=== PATIENT | female | born 1950 | race Caucasian/White ===

== ENCOUNTER 2016-10-28 08:16 | Day surgery (SDC) | payer MEDICARE, BC ==
[~2016-10-28 08:16] MED LIST: KETOROLAC TROMETHAMINE 0.45% 4 DROP/0.4 ML DROPERETTE OS PRN; MIDAZOLAM 2 MG/2 ML INJ ONE
[2016-10-28] MEDS: BESIFLOXACIN HCL 0.6% OPH SUSP 5 ML BOTTLE OS PRN ×4 (08:39→09:29)
[2016-10-28] MEDS: CYCLOPENTOLATE 0.2%/PHENYLEPHRINE 1% OPH SOLN 2 ML OS PRN ×3 (08:39→08:48)
[2016-10-28] MEDS: TROPICAMIDE 1% OPH SOLN 3 ML OS PRN ×3 (08:39→08:48)
[2016-10-28] MEDS: TETRACAINE HCL 0.5% OPH SOLN 2 ML OS PRN ×3 (08:39→08:59)
[2016-10-28] MEDS: CHONDR SU A NA/HYALUR INTRAOC KIT (SURGICARE) ONE ×2 (09:13)
[2016-10-28] MEDS: LIDOCAINE 1% INJ-PF (10 MG/ML) 30 ML SDV ONE ×2 (09:13)
[2016-10-28] MEDS: EPINEPHRINE INJ/PF 1 MG/1 ML AMPULE ONE ×2 (09:13)
--- NOTE | 2016-10-28 20:32 | [facility] OPERATIVE REPORT E ---
[facility] Operative Report NAME: SHARON MCPHERSON AGE: 66Y DATE OF SURGERY: 10/28/2016 ROOM: PREOPERATIVE DIAGNOSIS: CATARACT, LEFT EYE. POSTOPERATIVE DIAGNOSIS: CATARACT, LEFT EYE. OPERATION: Cataract extraction with intraocular lens implant of the left eye. SURGEON: BARRETT BOLANOS M.D. ANESTHESIA: Topical. PROCEDURE: After obtaining appropriate consent, the patient's left eye was prepped and draped in sterile fashion as well as the surgeon in a sterile manner and cataract surgery was started. First a paracentesis blade was used to make a small side-port incision. Viscoelastic was used to inflate the anterior chamber. Next a 2.4 mm incision was made with the paracentesis blade. A continuous capsulorrhexis incision was made using a cystotome and Utrata forceps. Following this hydrodissection was carried out to make the lens fully loose and mobile and it was rotated 90 degrees. Following this, a mhfkvw-gtp-uyzisuk technique was used to phacoemulsify the lens with a CDE of 7.96. The remaining cortex was removed with irrigation/aspiration. Provisc was instilled into the capsular bag to inflate the bag. A SN60WF, 19.5 diopter lens was placed. The remaining viscoelastic material was removed with irrigation/aspiration. Following this, a 10-0 nylon suture was used to close the incision and it was found to be watertight. Vigamox was instilled in the eye and a protective shield was placed over the eye. The patient returned to the postoperative recovery in stable condition. DICTATING PHYSICIAN: BARRETT BOLANOS M.D. [id number] PHY#: [id number] ID: [id number] JOB#: [id number] ACCT: [id number] cc:BARRETT BOLANOS M.D. >
--- NOTE | 2016-10-28 20:33 | DISCHARGE SUMMARY E ---
Discharge Summary NAME: SHARON MCPHERSON : 1950 AGE: 66Y ADMITTED: 10/28/2016 DISCHARGED: 10/28/2016 This is a 66-year-old female who underwent cataract extraction of the left eye. DIAGNOSIS: Cataract, left eye. She underwent surgery because she was having difficulty with glare from headlights making it difficult to drive at night. DISCHARGE INSTRUCTIONS: She is to be on a regular diet. No bending at her waist, no heavy lifting. She is to use Besivance, Ilevro, and Durezol at 3:00 p.m. and 8:00 p.m., and sleep with a rigid shield. I will see her for her 1-day postoperative tomorrow. DICTATING PHYSICIAN: BARRETT BOLANOS M.D. [id number] PHY#: [id number] ID: [id number] JOB#: [id number] ACCT: [id number] cc:BARRETT BOLANOS M.D. >
== END 2016-10-28 10:16 | disposition home or self-care (01) ==
LOC: SC 08:16
PROVIDERS: ATTEND Internal Medicine
PROC: 08RK3JZ Replacement of Left Lens with Synthetic Substitute, Percutaneous Approach (ICD-10-PCS; principal; 2016-10-28 09:00)
DX: H25.13 Age-related nuclear cataract, bilateral (principal); I10 Essential (primary) hypertension; J45.909 Unspecified asthma, uncomplicated; M19.90 Unspecified osteoarthritis, unspecified site; D64.9 Anemia, unspecified; I51.9 Heart disease, unspecified; F32.9 Major depressive disorder, single episode, unspecified; E11.40 Type 2 diabetes mellitus with diabetic neuropathy, unspecified; E78.00 Pure hypercholesterolemia, unspecified; Z79.899 Other long term (current) drug therapy; Z79.82 Long term (current) use of aspirin; Z79.4 Long term (current) use of insulin; Z75.1 Person awaiting admission to adequate facility elsewhere
CPT/HCPCS: 66984; 82962; V2632; J2250; J3490 ×2; A9270; J0171; 142

== ENCOUNTER 2016-11-18 09:16 | Day surgery (SDC) | payer MEDICARE, BC ==
[~2016-11-18 09:16] MED LIST changes: +KETOROLAC TROMETHAMINE 0.45% 4 DROP/0.4 ML DROPERETTE OD PRN; -KETOROLAC TROMETHAMINE 0.45% 4 DROP/0.4 ML DROPERETTE OS PRN; -MIDAZOLAM 2 MG/2 ML INJ ONE
[2016-11-18] MEDS ORDERED: EPINEPHRINE INJ/PF 1 MG/1 ML AMPULE ONE (09:26)
[2016-11-18] MEDS ORDERED: CHONDR SU A NA/HYALUR INTRAOC KIT (SURGICARE) ONE (09:27)
[2016-11-18] MEDS ORDERED: LIDOCAINE 1% INJ-PF (10 MG/ML) 30 ML SDV ONE (09:27)
[2016-11-18] MEDS: TETRACAINE HCL 0.5% OPH SOLN 2 ML OD PRN ×3 (09:45→10:29)
[2016-11-18] MEDS: CYCLOPENTOLATE 0.2%/PHENYLEPHRINE 1% OPH SOLN 2 ML OD PRN ×3 (09:45→10:05)
[2016-11-18] MEDS: TROPICAMIDE 1% OPH SOLN 3 ML OD PRN ×3 (09:46→10:05)
[2016-11-18] MEDS: BESIFLOXACIN HCL 0.6% OPH SUSP 5 ML BOTTLE OD PRN ×4 (09:46→10:49)
[2016-11-18] MEDS ORDERED: MIDAZOLAM 2 MG/2 ML INJ ONE (09:53)
[2016-11-18] MEDS ORDERED: FENTANYL CITRATE INJ/PF 100 MCG/2 ML AMPUL ONE (10:47)
--- NOTE | 2016-11-22 11:59 | [facility] OPERATIVE REPORT E ---
[facility] Operative Report NAME: SHARON MCPHERSON AGE: 66Y DATE OF SURGERY: 11/18/2016 ROOM: PREOPERATIVE DIAGNOSIS: CATARACT, RIGHT EYE. POSTOPERATIVE DIAGNOSIS: CATARACT, RIGHT EYE. OPERATION: Cataract extraction with intraocular lens implant of the right eye. SURGEON: BARRETT BOLANOS M.D. ANESTHESIA: Topical. PROCEDURE: After obtaining appropriate consent, the patient's right eye was prepped and draped in sterile fashion as well as the surgeon in a sterile manner and cataract surgery was started. First a paracentesis blade was used to make a small side-port incision. Viscoelastic was used to inflate the anterior chamber. Next a 2.4 mm incision was made with the paracentesis blade. A continuous capsulorrhexis incision was made using a cystotome and Utrata forceps. Following this hydrodissection was carried out to make the lens fully loose and mobile and it was rotated 90 degrees. Following this, a esuqny-lua-pftbrbv technique was used to phacoemulsify the lens with a CDE of 22.38. The remaining cortex was removed with irrigation/aspiration. Provisc was instilled into the capsular bag to inflate the bag. A SN60WF, 18.5 diopter lens was placed. The remaining viscoelastic material was removed with irrigation/aspiration. Following this, a 10-0 nylon suture was used to close the incision and it was found to be watertight. Vigamox was instilled in the eye and a protective shield was placed over the eye. The patient returned to the postoperative recovery in stable condition. DICTATING PHYSICIAN: BARRETT BOLANOS M.D. [id number] PHY#: [id number] ID: [id number] JOB#: [id number] ACCT: [id number] cc:BARRETT BOLANOS M.D. >
--- NOTE | 2016-11-22 12:04 | [facility] DISCHARGE SUMMARY E ---
[facility] Discharge Summary NAME: SHARON MCPHERSON AGE: 66Y ADMITTED: 11/18/2016 DISCHARGED: 11/18/2016 HOSPITAL COURSE: This is a 66-year-old female who underwent cataract extraction of the right eye, diagnosed as cataract right eye. She underwent surgery because she was having difficulty with glare from headlights making it difficult to drive at night. She should be on a regular diet, no bending at her waist, no heavy lifting. She should use her Besivance, Ilevro, and Durezol at 3 p.m. and 8 p.m. and sleep with a rigid shield, and I will see her for a one day postoperative tomorrow. DICTATING PHYSICIAN: BARRETT BOLANOS M.D. [id number] PHY#: [id number] ID: [id number] JOB#: [id number] ACCT: [id number] cc:BARRETT BOLANOS M.D. >
== END 2016-11-18 11:37 | disposition home or self-care (01) ==
LOC: SC 09:16
PROVIDERS: ATTEND Internal Medicine
PROC: 08RJ3JZ Replacement of Right Lens with Synthetic Substitute, Percutaneous Approach (ICD-10-PCS; principal; 2016-11-18 10:30)
DX: H25.11 Age-related nuclear cataract, right eye (principal); Z96.1 Presence of intraocular lens; I10 Essential (primary) hypertension; J44.9 Chronic obstructive pulmonary disease, unspecified; E11.9 Type 2 diabetes mellitus without complications; Z79.51 Long term (current) use of inhaled steroids; Z79.899 Other long term (current) drug therapy; Z79.4 Long term (current) use of insulin; Z79.82 Long term (current) use of aspirin; Z88.0 Allergy status to penicillin
CPT/HCPCS: 66984; 82962; V2632; J2250; J3490 ×2; A9270; J0171; J3010; 142

== ENCOUNTER → 2017-12-13 | Outpatient (CLI) | payer MEDICARE, BC ==
--- NOTE | 2017-12-13 09:58 | RADIOLOGY REPORT (SQ) ---
EXAM DESCRIPTION: JOAO SWALLOW COMPLETED DATE/TIME: 12/13/2017 9:38 am REASON FOR STUDY: DYSPHAGIA, UNSPECIFIED R13.10 DYSPHAGIA, UNSPECIFIED COMPARISON: None. TECHNIQUE: Videofluoroscopic swallowing examination was performed in conjunction with speech patholo gy. Videofluoroscopic imaging was obtained and reviewed and these are the findings: RADIATION DOSE: 1 minutes 38 seconds of fluoroscopy was used. 1 images saved to PACS. LIMITATIONS: None FINDINGS: The patient was brought into the fluoro room and placed upright on a modified barium swall ow chair. The patient was then given multiple consistencies mixed with barium to swallow under live fluoroscopic video guidance. According to the Speech Pathologist there was trace laryngeal penetrati on with thin liquids. No aspiration seen. Post swallow residual contrast seen within the vallecular. IMPRESSION: TRACE LARYNGEAL PENETRATION WITHOUT ASPIRATION.PLEASE SEE SPEECH PATHOLOGIST REPORT FOR OTHER FINDINGS AND RECOMMENDATIONS. COMMENT: Quality ID 145: Final reports for procedures using fluoroscopy that document radiation exp osure indices, or exposure time and number of fluorographic images (if radiation exposure indices are not available) TECHNICAL DOCUMENTATION: JOB ID: [id number] [employer]- All Rights Reserved Reading location - IP/workstation name: [email or web address]
--- NOTE | 2017-12-13 17:25 | ST Modified Barium Swallow ---
Recommendation - Recommendations Recommendations: Recommend outpatient dysphagia treatment to address oropharyngeal defecits. No diet change recommendations at this time. Medical Diagnoses - Medical Diagnoses Medical Diagnosis Description & ICD-10 Code(s): R13.10 Other Medical Diagnoses/Co-Morbidities: Per patient report: hereditary anemia, diabetes, hypertension, degerenetive disc and muscle disease, neuropothy of the feet ST Modified Barium Swallow - General Date: 12/13/17 Referring Physician: Diogo Cummings MD Risks/Precautions: None Date of Onset: 12/13/97 Reason for Referral: Difficulty swallowing - History History obtained from: Patient -: Medical - Patient reports swallowing difficulties for the past 20+ years, particularly on "cornbread, rice and salad." Reports more difficulty with cup sips; prefers to use straw. Reports very dry mouth, and difficulty getting foods back into the mouth. Patient reports recurrent coughing and globus sensation around the area of the valeculae. Medications: Patient unable to recall all medications. Reports taking medication for diabetes and hypertension. Allergies: Patient reported milk. Clinician offered patient options of either chocolate pudding or applesauce for PO trials; patient chose chocolate pudding. - Functional Status Prior Functional Status: INDEPENDENT: feeding - Patient reports long-standing swallowing difficulties. Current Functional Limitations: feeding - Swallowing difficulties. - Subjective Patient/caregiver goal(s): better swallow Cognitive-Linguistic Function: Functional Speech Intelligibility: WNL Current Nutritional Means: NPO Current PO diet: Regular Current symptoms: Coughing, c/o Globus sensation Pain: Patient reports, 3/5 - Objective Assessment: Upright, Left Lateral - Food Trials Used Food trials used: Thin liquids, Pureed, Regular The patient: Was Able to Self Feed, via cup, via spoon - Assessment Oral prep: Adeq, for consist. tested Labial closure: Adequate Leakage: None Mastication: Adequate Oral stage: Mildly Impaired, Impaired Bolus Propulsion - Pharyngeal Stage Decreased laryngeal elevation: No Reduced Velopharyngeal Closure: no Reduced pressure generation: No Reduced Thyro-Hyoid approximation: No Reduced epiglottic excursion: No Multiple Swallows with: Cleared w/ Liquid Assist Post-swallow residulas vallecular: None Post-Swallow residuals in pyriforms: None Post-Swallow Residuals: tongue-base - Fall Risk Assessment Medications/Conditions that increase fall risks include: Antidepressants, sedatives, anti-arrhythmic, diuretic, benzodiazipenes, neuroleptics. BP regulation problems, cardiac problems, balance or gait deficits, neurological problems. Is patient considered at risk for falls: yes Fall Risk Actions Taken: No action needed - Behavioral Observations During evaluation process patient: was pleasant, was cooperative, provided medical history - Treatment / Educational Needs: Treatment/Education Needs: Treatment consisted of patient education on the role of the Speech Pathologist. Patient's plan of care and golas were communicated as well as scheduling and attendance policies. Recommendations for initial home program were shared. Patient demonstrated understanding and verbalized agreement. - Impression/Summary Laryngeal Penetration: Flash Consistency: Thin Tracheal Aspiration: no Effective Clearing: yes Patient presents with: Oral stage dysphagia Risk of Aspiration: Minimal Risk of nutritional compromise: None Evaluation and Findings: Clinician administered thin liquids, pudding and regular PO trials. Flash penetration noted on thin liquid trials. With pritesh cracker trials, significant residuals noted on base of tongue. Patient reported she felt that it was "stuck." Residuals eventually cleared with multiple dry swallows and liquid wash. Recommend 1-2 sessions of outpatient dysphagia treatment to address oropharyngeal dysphagia. - Recommendations NPO: no Solid diet recommendations: Regular Liquid Diet Modification: Thin Strict aspiration precautions: No Pt/Family education and followup with MD: Yes Dysphagia therapy with FRUIT AND VEGETABLE CLASSER: yes, dysphagia therapy Recommended techniques: Fully Upright During Meal, Small Bites and Sips, Alternate Bites/Sips Supervision: Independent Information, Precautions and Recommendations: Patient (Written), Patient (Verbal ) - Time Total Time: 30 - Plan of Care Summary: Goals to be established by outpatient clinician Patient to follow-up with referring physician: Yes POC Procedures/Codes: pharyngeal exercises, oral motor exercises, MBSS (78404) Strategies to optimize patient understanding include:: ongoing assessment of educational needs, implementation of educational strategies, and re-education. - - -: Thank you for the opportunity to work with this patient and his/her family. Should you have any questions about this patient's plan or progress, I can be reached at [phone]. Charge G Code? - - -: Yes ST F.L. Impairment Category - Rationale Based On Rationale Based On: Clin Find., Obj Measures - Swallowing Current G8996: CI 1-19% Impaired Goal G8997: CI 1-19% Impaired Discharge G8998: CI 1-19% Impaired
== END ==
LOC: RAD 08:25
PROVIDERS: ATTEND Otolaryngology
DX: R13.10 Dysphagia, unspecified (principal)
CPT/HCPCS: 74230; 92611; G8996; G8997; G8998

== ENCOUNTER → 2017-12-28 | Outpatient (CLI) | payer MEDICARE, BC ==
[~2017-12-28] MED LIST changes: +ALBUTEROL SULFATE 0.083% NEB 2.5 MG/3 ML AMPUL NEB ONE; -KETOROLAC TROMETHAMINE 0.45% 4 DROP/0.4 ML DROPERETTE OD PRN
--- NOTE | 2017-12-29 11:20 | Pulmonary Function Test ---
Pulmonary Function Test Date of Procedure:: 12/28/17 INDICATION:: COPD Referring Provider: Dr. Perkins It Service Technician: Aleta Mariscal FURS SALESPERSON, CASHIER SELF SERVICE GASOLINE - Report Spirometry: FVC 2.62 L 87% postbronchodilator 2.78 L 92% FEV1 2.12 L 88% postbronchodilator 2.35 L 98% FEV1/FVC percent 81 postbronchodilator 84 predicted 82 FEF 25-75% 2.44 L 97% postbronchodilator 3.19 L 127% Lung Volume: Total lung capacity 3.24 L 64% Vital capacity 2.86 L 95% Inspiratory 1.54 L FRC N2 1.70 L 72% ERV 0.48 Residual volume 0.38 19% RV/TLC% 12 predicted 39 Diffusion Capactity: Diffusion capacity 14.9 61% DLCO/VA 4.13 111% Impression: No evidence to substantiate obstructive ventilatory defect. Mild restrictive ventilatory defect. No hyperinflation air trapping. Normal diffusion capacity.
== END ==
LOC: RT 12:20
PROVIDERS: ATTEND Internal Medicine Pulmonary Disease
DX: J44.9 Chronic obstructive pulmonary disease, unspecified (principal)
CPT/HCPCS: 94729; 94727; 94060; 94760; A9270

== ENCOUNTER → 2018-03-23 | Day surgery (SDC) | payer MEDICARE, BC ==
--- NOTE | 2018-03-23 14:39 | RADIOLOGY REPORT (SQ) ---
EXAM DESCRIPTION: ARTHRO HIP INJ W/ANESTHESIA; FLUORO/NEEDLE PLACEMENT COMPLETED DATE/TIME: 03/23/2018 1:34 pm REASON FOR STUDY: M25.552 PAIN IN LEFT HIP M25.552 PAIN IN LEFT HIP COMPARISON: None. FLUOROSCOPY TIME: 11 SECONDS 1 images saved to PACS. LIMITATIONS: None. PROCEDURE: Procedure, risks, benefits and alternatives explained to patient who then gave written c onsent. The left hip was marked and a time-out was called for correct marking verification. Entry s ite marked using fluoroscopic guidance. Hip prepped and draped using sterile technique. Local anes thesia achieved using 1% lidocaine injection. Hypodermic needle introduced into the joint space und er direct fluoroscopic visualization. Non-ionic contrast instilled to confirm intra-articular positi on. Dilute gadolinium solution then injected. Needle removed and entry site covered with sterile b andage. No immediate complications noted. TECHNIQUE: Digital images acquired during fluoroscopy and stored on PACS. Patient immediately take n to the MR suite for additional imaging. INJECTION LOCATION: Left hip. CONTRAST TYPE AND AMOUNT: 1 cc Omnipaque 8 cc Dotarem/Saline mixture. IMPRESSION: SUCCESSFUL NEEDLE PLACEMENT AND INJECTION FOR LEFT HIP MR ARTHROGRAM. COMMENT: Quality ID 145: Final reports for procedures using fluoroscopy that document radiation exp osure indices, or exposure time and number of fluorographic images (if radiation exposure indices are not available) TECHNICAL DOCUMENTATION: JOB ID: [id number] [employer]- All Rights Reserved Reading location - IP/workstation name: [email or web address]
--- NOTE | 2018-03-23 14:39 | RADIOLOGY REPORT (SQ) ---
EXAM DESCRIPTION: ARTHRO HIP INJ W/ANESTHESIA; FLUORO/NEEDLE PLACEMENT COMPLETED DATE/TIME: 03/23/2018 1:34 pm REASON FOR STUDY: M25.552 PAIN IN LEFT HIP M25.552 PAIN IN LEFT HIP COMPARISON: None. FLUOROSCOPY TIME: 11 SECONDS 1 images saved to PACS. LIMITATIONS: None. PROCEDURE: Procedure, risks, benefits and alternatives explained to patient who then gave written c onsent. The left hip was marked and a time-out was called for correct marking verification. Entry s ite marked using fluoroscopic guidance. Hip prepped and draped using sterile technique. Local anes thesia achieved using 1% lidocaine injection. Hypodermic needle introduced into the joint space und er direct fluoroscopic visualization. Non-ionic contrast instilled to confirm intra-articular positi on. Dilute gadolinium solution then injected. Needle removed and entry site covered with sterile b andage. No immediate complications noted. TECHNIQUE: Digital images acquired during fluoroscopy and stored on PACS. Patient immediately take n to the MR suite for additional imaging. INJECTION LOCATION: Left hip. CONTRAST TYPE AND AMOUNT: 1 cc Omnipaque 8 cc Dotarem/Saline mixture. IMPRESSION: SUCCESSFUL NEEDLE PLACEMENT AND INJECTION FOR LEFT HIP MR ARTHROGRAM. COMMENT: Quality ID 145: Final reports for procedures using fluoroscopy that document radiation exp osure indices, or exposure time and number of fluorographic images (if radiation exposure indices are not available) TECHNICAL DOCUMENTATION: JOB ID: [id number] [employer]- All Rights Reserved Reading location - IP/workstation name: [email or web address]
--- NOTE | 2018-03-23 15:16 | RADIOLOGY REPORT (SQ) ---
EXAM DESCRIPTION: MRI LT LOWER JOINT WITH COMPLETED DATE/TIME: 03/23/2018 2:20 pm REASON FOR STUDY: M25.552 PAIN IN LEFT HIP M25.552 PAIN IN LEFT HIP COMPARISON: None. TECHNIQUE: Post arthrogram imaging is performed using T1 and T1 and T2 fat saturated sequences of th e pelvis and specific hip of interest. LIMITATIONS: None. FINDINGS: JOINT DISTENSION: Adequate. No loose body. BONE MARROW: No edema. No marrow replacement. FEMORAL HEAD, NECK, AND ACETABULUM: Joint space narrowing. No evidence of femoroacetabular impingeme nt. No large osteophytes. PUBIC RAMI AND ISCHIUM: No occult fracture. SACRUM AND AURELIANO: SI joints normal in signal. No occult fracture. EFFUSIONS: None. LABRUM AND CARTILAGE: No labral tear. Cartilage of normal thickness without delamination. MUSCLES AND SOFT TISSUES: Mild inflammatory changes in the hamstring origin. No organized bursal flu id collection. PELVIC SOFT TISSUES: No masses or adenopathy. SCIATIC NERVE: Identified without masses. OTHER: Lower lumbar spondylosis. Reactive edema L5-S1 endplates. IMPRESSION: 1. No evidence of labral tear. 2. Tendinosis hamstring origin. No organized bursal fluid collection. TECHNICAL DOCUMENTATION: JOB ID: [id number] [employer]- All Rights Reserved Reading location - IP/workstation name: [email or web address]
== END ==
LOC: RAD 12:45
PROVIDERS: ATTEND Physician Assistant Medical
DX: M25.552 Pain in left hip (principal); G89.4 Chronic pain syndrome
CPT/HCPCS: 27095; 77002

== ENCOUNTER 2019-04-16 22:55 | Observation (INO) | payer MEDICARE, BC ==
[2019-04-17] MEDS ORDERED: PREGABALIN 50 MG CAPSULE PO ONE (00:31)
[2019-04-17] MEDS ORDERED: PREGABALIN 100 MG CAPSULE PO ONE (00:31)
--- NOTE | 2019-04-17 00:45 | ER Document Report ---
ED Psych Disorder / Suicide - General Chief Complaint: Psych Problem Stated Complaint: BACK PAIN Time Seen by Provider: 04/16/19 23:27 Notes: Patient is a 68-year-old Zentz to the emergency department with homicidal ideation. Patient states that she wants to kill her . Patient was brought to the emergency department with IVC paperwork. 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 According to the patient she has surgery planned but she is also afraid of being paralyzed. She is supposed to have surgery in [place]. Patient states that she does not have a reason to live and wants to commit suicide. She stated to mobile crisis that she wanted to commit suicide. She pointed to a 22 rifle and a box of Project Manager and states that she wanted to shoot herself. TRAVEL OUTSIDE OF THE [place] IN LAST 30 DAYS: No - Related Data Allergies/Adverse Reactions: amoxicillin Allergy (Verified 10/28/16 08:45) citalopram Allergy (Verified 10/28/16 08:45) duloxetine Allergy (Verified 10/28/16 08:45) liraglutide Allergy (Verified 10/28/16 08:45) milk Allergy (Verified 10/28/16 08:45) montelukast Allergy (Verified 10/28/16 08:45) RASH phenobarbital Allergy (Verified 10/28/16 08:45) RASH POTASSIUM CLAVULANATE Allergy (Uncoded 10/28/16 08:45) Past Medical History - Social History Smoking Status: Unknown if Ever Smoked Family History: Reviewed & Not Pertinent Patient has suicidal ideation: Yes Patient has homicidal ideation: No - Past Medical History Cardiac Medical History: Reports: Hx Hypertension Denies: Hx Heart Attack Pulmonary Medical History: Reports: Hx Asthma Neurological Medical History: Denies: Hx Cerebrovascular Accident, Hx Seizures GI Medical History: Denies: Hx Hepatitis, Hx Hiatal Hernia, Hx Ulcer Infectious Medical History: Denies: Hx Hepatitis Past Surgical History: Reports: Hx Hysterectomy. Denies: Hx Mastectomy, Hx Open Heart Surgery, Hx Pacemaker Review of Systems - Review of Systems Notes: REVIEW OF SYSTEMS: CONSTITUTIONAL : Denies recent illness. Denies recent unintentional weight loss. Denies fever, chills, or sweats. EENT: Denies eye, ear, throat, or mouth pain, discharge, or symptoms. Denies nasal or sinus congestion. CARDIOVASCULAR: Denies chest pain. RESPIRATORY: Denies shortness of breath, cough, congestion, difficulty breathing, or wheezing. GASTROINTESTINAL: Denies nausea, vomiting, and diarrhea. Denies abdominal pain. Denies constipation. GENITOURINARY: Denies difficulty urinating, burning, blood in urine, urgency or frequency. MUSCULOSKELETAL: See HPI. Denies joint pain or swelling. SKIN: Denies rash, itchiness, or lesions HEMATOLOGIC : Denies easy bruising or bleeding. LYMPHATIC: Denies swollen, painful, enlarged glands. NEUROLOGICAL: Denies no numbness or tingling denies weakness. Denies headache. Denies altered mental status. Denies alteration in speech. PSYCHIATRIC: See HPI. All other systems reviewed and negative. Physical Exam - Vital signs Vitals: Temp Pulse Resp BP Pulse Ox 97.6 F 88 20 192/86 H 97 04/16/19 23:00 04/16/19 23:00 04/16/19 23:00 04/16/19 23:00 04/16/19 23:00 - Notes Notes: PHYSICAL EXAMINATION: GENERAL: Appears well, healthy, well-nourished, no acute distress. HEAD: Normocephalic, atraumatic. EYES: PERRL, conjunctiva normal, all extraocular movements intact, sclera nonicteric ENT: Dry mucous membranes. NECK: Supple, no noticeable swelling, redness, rash. Normal range of motion. LUNGS: Equal breath sounds bilaterally and clear to auscultation. No wheezes rales or rhonchi. CARDIOVASCULAR: S1-S2, regular rate, regular rhythm. Radial pulses 2+, normal. ABDOMEN: Normoactive bowel sounds. Soft, nontender, no guarding, no rebound tenderness, and no masses palpated. EXTREMITIES: Normal strength and range of motion, no pitting or edema. No cyano sis. NEUROLOGICAL: Moves all extremities upon command. Strength 5/5 in all extremities. PSYCH: Euphoric, grandiose. SKIN: Warm, dry. No rash, lesions, ulcerations noted. Normal skin turgor. BACK: Tender lower Back, patient states that this is her normal back pain. Course - Re-evaluation Re-evalutation: 04/17/19 04:00 Patient's hematology shows a leukocytosis of 11,300. Chemistries are unremarkable. Patient's urinalysis shows that she is dehydrated and has a urinary tract infection. Patient will be started on Keflex. toxicology is negative. 04/17/19 08:56 Spoke with Tayler Moscoso NP. Patient will be admitted to the medical floor. - Vital Signs Vital signs: Temp Pulse Resp BP Pulse Ox 97.4 F 89 20 184/89 H 98 04/17/19 05:58 04/17/19 05:58 04/17/19 05:58 04/17/19 05:58 04/17/19 05:58 - Laboratory Result Diagrams: 04/17/19 00:35 04/17/19 00:35 Laboratory results interpreted by me: 04/17/19 04/17/19 04/17/19 00:35 00:35 00:35 WBC 11.3 H MCV 79 L MCH 26.5 L RDW 15.1 H Chloride 109 H Glucose 125 H Alkaline Phosphatase 205 H Urine Protein 100 H Ur Leukocyte Esterase LARGE H Salicylates < 1.0 L Acetaminophen < 10 L - EKG Interpretation by Me Additional EKG results interpreted by me: 04/17/19 08:57 Sinus rhythm. Rate 82. ID 164; QRS 88; QT 404; QTc 472. No ST elevations or depressions noted. Discharge - Discharge Clinical Impression: Suicidal ideation, Homicidal ideation Urinary tract infection Qualifiers: Urinary tract infection type: acute cystitis Hematuria presence: without hematuria Qualified Code(s): N30.00 - Acute cystitis without hematuria Altered mental status Qualifiers: Altered mental status type: unspecified Qualified Code(s): R41.82 - Altered mental status, unspecified Condition: Stable Disposition: ADMITTED INPATIENT Admitting Provider: Jasmine (Hospitalist) Unit Admitted: Medical Floor
[2019-04-17 00:47] LABS: ABSOLUTE BASOPHILS # (AUTO) 0.1 10^3/uL (0.0-0.2); ABSOLUTE EOSINOPHILS # (AUTO) 0.4 10^3/uL (0.0-0.6); ABSOLUTE LYMPHOCYTES (AUTO) 1.8 10^3/uL (0.5-4.7); ABSOLUTE MONOCYTES (AUTO) 0.9 10^3/uL (0.1-1.4); ABSOLUTE NEUT (AUTO) 8.2 10^3/uL (1.7-8.2); BASOPHILS % (AUTO) 0.9 % (0-2); EOSINOPHILS % (AUTO) 3.7 % (0-6); HEMOGLOBIN 13.4 g/dL (12.0-15.5); LYMPHOCYTES % (AUTO) 15.6 % (13-45); MEAN CORPUSCULAR HEMOGLOBIN 26.5 pg (27.0-33.4); MEAN CORPUSCULAR HGB CONC 33.5 g/dL (32.0-36.0); MEAN CORPUSCULAR VOLUME 79 fl (80-97); MONOCYTES % (AUTO) 7.7 % (3-13); PLATELET COUNT 361 10^3/uL (150-450); RED BLOOD COUNT 5.04 10^6/uL (3.72-5.28); RED CELL DISTRIBUTION WIDTH 15.1 % (11.5-14.0); SEGMENTED NEUTROPHILS % (AUTO) 72.1 % (42-78); TOTAL CELLS COUNTED % (AUTO) 100 %; WHITE BLOOD COUNT 11.3 10^3/uL (4.0-10.5)
[2019-04-17 01:02] LABS: APPEARANCE,URINE SLIGHTLY-CLOUDY; BILIRUBIN,URINE NEGATIVE (NEGATIVE); COLOR,URINE YELLOW; GLUCOSE, URINE NEGATIVE (NEGATIVE); KETONES,URINE NEGATIVE (NEGATIVE); LEUKOCYTE ESTERASE,URINE LARGE (NEGATIVE); NITRITE,URINE NEGATIVE (NEGATIVE); PROTEIN,URINE 100 mg/dL (NEGATIVE); URINE SPECIFIC GRAVITY 1.013; UROBILINOGEN,URINE NEGATIVE mg/dL (<2.0)
[2019-04-17 01:10] LABS: URINE AMPHETAMINES SCREEN NEGATIVE; URINE BARBITURATES SCREEN NEGATIVE; URINE BENZODIAZEPINES SCREEN NEGATIVE; URINE COCAINE SCREEN NEGATIVE; URINE MARIJUANA (THC) SCREEN NEGATIVE; URINE METHADONE SCREEN NEGATIVE; URINE PHENCYCLIDINE SCREEN NEGATIVE
[2019-04-17 01:32] LABS: ALBUMIN 4.4 g/dL (3.5-5.0); ALKALINE PHOSPHATASE 205 U/L (38-126); ANION GAP 13 (5-19); ASPARTATE AMINO TRANSFERASE 24 U/L (14-36); BILIRUBIN,DIRECT 0.2 mg/dL (0.0-0.4); BILIRUBIN,TOTAL 0.5 mg/dL (0.2-1.3); BLOOD UREA NITROGEN 14 mg/dL (7-20); CALCIUM 9.9 mg/dL (8.4-10.2); CARBON DIOXIDE 22 mmol/L (22-30); CHLORIDE 109 mmol/L (98-107); GLUCOSE 125 mg/dL (75-110); TOTAL PROTEIN 7.7 g/dL (6.3-8.2)
[2019-04-17 01:34] LABS: ACETAMINOPHEN < 10 ug/mL (10-30); ALCOHOL < 10 mg/dL (NONE DETECTED); SALICYLATE < 1.0 mg/dL (2.0-20.0)
[2019-04-17] MEDS ORDERED: HALOPERIDOL LACTATE INJ 5 MG/1 ML VIAL IM ONE (02:32)
[2019-04-17] MEDS ORDERED: LORAZEPAM INJ 2 MG/1 ML VIAL IM ONE (02:33)
[2019-04-17] MEDS ORDERED: CEPHALEXIN 500 MG CAPSULE PO ONE (04:26)
[2019-04-17] MEDS ORDERED: LISINOPRIL 10 MG TABLET PO ONE (08:04)
[2019-04-17] MEDS ORDERED: HYDROCHLOROTHIAZIDE 25 MG TABLET PO ONE (08:05)
[2019-04-17] MEDS ORDERED: NORMAL SALINE 1000 ML 1,000 ML IV ONE (08:40)
--- NOTE | 2019-04-17 09:38 | EKG REPORT ---
SEVERITY:- NORMAL ECG - SINUS RHYTHM : Confirmed by: Cassidy Patel 17-Apr-2019 09:37:31
[2019-04-17] MEDS ORDERED: ALBUTEROL SULFATE 0.083% NEB 2.5 MG/3 ML AMPUL NEB PRN (09:54)
[2019-04-17] MEDS ORDERED: ONDANSETRON HCL INJ/PF 4 MG/2 ML SDV IV PRN (09:59)
[2019-04-17] MEDS ORDERED: MAG HYDROX/AL HYDROX/SIMETH SUSP 30 ML UDCUP PO PRN (09:59)
[2019-04-17] MEDS ORDERED: DEXTROSE 40% GEL 15 GM TUBE PO PRN ×2 (10:00)
[2019-04-17] MEDS ORDERED: DEXTROSE 50%-WATER 25 GM/50 ML DISP.SYRIN IV PRN ×2 (10:00)
[2019-04-17] MEDS ORDERED: GLUCAGON,HUMAN RECOMB 1 MG INJ IM PRN (10:00)
[2019-04-17] MEDS: FAMOTIDINE 20 MG TABLET PO SCH ×2 (10:17→21:25)
[2019-04-17] MEDS: DOCUSATE SODIUM 100 MG CAPSULE PO SCH (10:17)
[2019-04-17] MEDS: ACETAMINOPHEN 325 MG TABLET PO PRN ×3 (10:34→23:20)
[2019-04-17] MEDS: INSULIN LISPRO 100 UNIT/ML 3 ML VIAL SUBCUT SCH ×3 (10:50→21:25)
[2019-04-17] MEDS ORDERED: INFLUENZA QUAD (6MOS+) 2019-20 VAC 0.5 ML SYR IM ONE (12:54)
[2019-04-17] MEDS: HEPARIN SOD (PORCINE) 5,000 UNIT/ML 1 ML VIAL SUBCUT SCH ×2 (14:41→21:24)
--- NOTE | 2019-04-17 16:48 | PDOC H&P ---
History of Present Illness Admission Date/PCP: 04/17/19 10:57 Patient complains of: UTI History of Present Illness: SHARON MCPHERSON is a 68 year old female with a past medical history significant for hypertension, hyperlipidemia, obesity, DM 2, chronic pain, and depression who presented to the emergency department via EMS after response by the mobile crisis team for homicidal and suicidal ideation resulting in IVC. The patient provides a vague past medical history/recent events; tells me that she was originally brought here to cook pickled meat a car from her who is also admitted to the hospital (this verified to be true; here for CHF exacerbation) and is p rimarily concerned about a preop appointment for possible back surgery that was scheduled at [facility]. 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 She, however, has no neuro deficits and non-specific midline tenderness throughout her lower thoracic and entire lumbar spine. Evaluation in the emergency department revealed Hypertension, mild leukocytosis, unremarkable chemistry, normal TSH, urinalysis positive for protein and leukoesterase suggestive of UTI, and negative toxicology panel. EKG demonstrates normal sinus rhythm. IVC is continued. Mental health services are consulted. Patient is referred to the hospitalist service for admission and management of the above-stated complaints and findings. Past Medical History Cardiac Medical History: Reports: Hyperlipidema, Hypertension Denies: Myocardial Infarction Pulmonary Medical History: Reports: Asthma EENT Medical History: Reports: None Neurological Medical History: Denies: Ischemic CVA, Seizures Endocrine Medical History: Reports: Diabetes Mellitus Type 2, Obesity Malignancy Medical History: Reports: None GI Medical History: Denies: Hepatitis, Hiatal Hernia Musculoskeltal Medical History: Reports: Arthritis, Other - Chronic back pain Psychiatric Medical History: Reports: Depression Hematology: Reports: Anemia Denies: Sickle Cell Disease Past Surgical History Past Surgical History: Reports: Hysterectomy Denies: Amputation, Mastectomy, Pacemaker Social History Information Source: Patient, [facility] Records Lives with: Spouse/Significant other Smoking Status: Never Smoker Electronic Cigarette use?: No Frequency of Alcohol Use: None Hx Recreational Drug Use: No Drugs: None Hx Prescription Drug Abuse: No - Advance Directive Resuscitation Status: Full Code Surrogate healthcare decision maker:: Presumed to be the patient's , Cirilo Mcpherson Family History Family History: Reviewed & Not Pertinent Parental Family History Reviewed: No - Poor historian Children Family History Reviewed: Unknown Sibling(s) Family History Reviewed.: Unknown Medication/Allergy Home Medications: Amlodipine Besylate 10 mg PO DAILY 10/21/16 Aspirin 81 mg PO DAILY PRN 10/21/16 Atorvastatin Calcium [Lipitor 40 mg Tablet] 40 mg PO QHS 10/21/16 Gabapentin 300 mg PO Q6 10/21/16 Potassium Chloride [Klor-Con Sprinkle] 10 meq PO DAILY 10/21/16 Trazodone HCl 50 mg PO QHS MDD 100 MG 10/21/16 Betamethasone Dipropionate [Diprosone Cream] 1 applic TP BID 04/17/19 Cholecalciferol (Vitamin D3) [Vitamin D3] 50,000 unit PO .QWEEKLY 04/17/19 Clonidine HCl [Catapres 0.1 mg Tablet] 0.1 mg PO BID 04/17/19 Clopidogrel Bisulfate [Plavix 75 mg Tablet] 75 mg PO DAILY 04/17/19 Furosemide [Lasix 40 mg Tablet] 40 mg PO BID 04/17/19 Lisinopril/Hydrochlorothiazide [Lisinopril-Hctz 20-25 mg Tab] 1 each PO Q12 10/29 Meloxicam [Mobic 15 mg Tablet] 15 mg PO DAILY 04/17/19 Nitroglycerin [Nitrostat 0.4 mg (1/150 Gr) Tabs 25/Bottle] 1 tab SL Q5MP PRN 04/17/19 Pregabalin 150 mg PO Q8 04/17/19 Allergies/Adverse Reactions: amoxicillin Allergy (Verified 04/17/19 12:16) citalopram Allergy (Verified 04/17/19 12:16) duloxetine Allergy (Verified 04/17/19 12:16) liraglutide Allergy (Verified 04/17/19 12:16) milk Allergy (Verified 04/17/19 12:16) montelukast Allergy (Verified 04/17/19 12:16) RASH phenobarbital Allergy (Verified 04/17/19 12:16) RASH POTASSIUM CLAVULANATE Allergy (Uncoded 04/17/19 12:16) Review of Systems Constitutional: ABSENT: chills, fever(s), headache(s), weight gain, weight loss Eyes: ABSENT: visual disturbances Ears: ABSENT: hearing changes Cardiovascular: ABSENT: chest pain, dyspnea on exertion, edema, orthropnea, palpitations Respiratory: ABSENT: cough, hemoptysis Gastrointestinal: PRESENT: abdominal pain, nausea. ABSENT: constipation, diarrhea, hematemesis, hematochezia, vomiting Genitourinary: PRESENT: dysuria. ABSENT: hematuria Musculoskeletal: PRESENT: back pain. ABSENT: joint swelling Integumentary: ABSENT: rash, wounds Neurological: ABSENT: abnormal gait, abnormal speech, confusion, dizziness, focal weakness, syncope Psychiatric: PRESENT: as per HPI, depression, homidical ideation, suicidal ideation. ABSENT: anxiety Endocrine: ABSENT: cold intolerance, heat intolerance, polydipsia, polyuria Hematologic/Lymphatic: ABSENT: easy bleeding, easy bruising Physical Exam Vital Signs: Temp Pulse Resp BP Pulse Ox 97.3 F 77 16 175/44 H 98 04/17/19 12:50 04/17/19 12:50 04/17/19 12:50 04/17/19 12:50 04/17/19 12:50 Intake & Output 04/16/19 04/17/19 04/18/19 06:59 06:59 06:59 Intake Total 1000 Balance 1000 Weight 96 kg 78.3 kg General appearance: PRESENT: no acute distress, disheveled, well-developed, well-nourished - Overweight Head exam: PRESENT: atraumatic, normocephalic Eye exam: PRESENT: conjunctiva pink, EOMI, PERRLA. ABSENT: scleral icterus Mouth exam: PRESENT: moist, tongue midline Teeth exam: PRESENT: poor dentation Neck exam: ABSENT: carotid bruit, JVD, lymphadenopathy, thyromegaly Respiratory exam: PRESENT: clear to auscultation jessica, symmetrical, unlabored. ABSENT: rales, rhonchi, wheezes Cardiovascular exam: PRESENT: RRR, +S1, +S2. ABSENT: diastolic murmur, rubs, systolic murmur Pulses: PRESENT: normal dorsalis pedis pul Vascular exam: PRESENT: normal capillary refill GI/Abdominal exam: PRESENT: normal bowel sounds, soft. ABSENT: distended, guarding, mass, organolmegaly, rebound, tenderness Rectal exam: PRESENT: deferred Extremities exam: PRESENT: full ROM. ABSENT: calf tenderness, clubbing, pedal edema Neurological exam: PRESENT: alert, awake, oriented to person, oriented to place, oriented to time, oriented to situation, CN II-XII grossly intact. ABSENT: motor sensory deficit Psychiatric exam: PRESENT: normal mood, suicidal ideation, unusual affect. ABS ENT: homicidal ideation Focused psych exam: PRESENT: pressured speech, restlessness, other - Confabulates Skin exam: PRESENT: dry, intact, warm. ABSENT: cyanosis, rash Results Laboratory Results: 04/17/19 00:35 04/17/19 00:35 04/17/19 04/17/19 04/17/19 00:35 00:35 00:35 WBC 11.3 H RBC 5.04 Hgb 13.4 Hct 40.0 MCV 79 L MCH 26.5 L MCHC 33.5 RDW 15.1 H Plt Count 361 Seg Neutrophils % 72.1 Sodium 144.4 Potassium 4.0 Chloride 109 H Carbon Dioxide 22 Anion Gap 13 BUN 14 Creatinine 0.85 Est GFR ( Amer) > 60 Glucose 125 H Calcium 9.9 Total Bilirubin 0.5 AST 24 Alkaline Phosphatase 205 H Total Protein 7.7 Albumin 4.4 TSH Urine Color YELLOW Urine Appearance SLIGHTLY-CLOUDY Urine pH 6.0 Ur Specific [place] 1.013 Urine Protein 100 H Urine Glucose (UA) NEGATIVE Urine Ketones NEGATIVE Urine Blood NEGATIVE Urine Nitrite NEGATIVE Ur Leukocyte Esterase LARGE H Urine WBC (Auto) 155 Urine RBC (Auto) 1 04/17/19 00:35 WBC RBC Hgb Hct MCV MCH MCHC RDW Plt Count Seg Neutrophils % Sodium Potassium Chloride Carbon Dioxide Anion Gap BUN Creatinine Est GFR ( Amer) Glucose Calcium Total Bilirubin AST Alkaline Phosphatase Total Protein Albumin TSH 0.74 Urine Color Urine Appearance Urine pH Ur Specific [place] Urine Protein Urine Glucose (UA) Urine Ketones Urine Blood Urine Nitrite Ur Leukocyte Esterase Urine WBC (Auto) Urine RBC (Auto) Assessment and Plan - Diagnosis (1) Suicidal ideation Is this a current diagnosis for this admission?: Yes Plan: Currently on IVC papers. 1:[address] Mental health services consulted. Medications per their recommendations. Discharge planning is consulted. (2) Homicidal ideation Is this a current diagnosis for this admission?: Yes Plan: Currently on IVC papers. 1:[address] Mental health services consulted. Medications per their recommendations. Discharge planning is consulted. (3) Hypertension Is this a current diagnosis for this admission?: Yes Plan: We will resume home medication regiment once reconciled. PRN IV hydralazine as needed for blood pressure control. (4) Urinary tract infection Qualifiers: Urinary tract infection type: acute cystitis Hematuria presence: without hematuria Qualified Code(s): N30.00 - Acute cystitis without hematuria Is this a current diagnosis for this admission?: Yes Plan: UTI by urinalysis. Blood and urine cultures pending. IV Rocephin while admitted. (5) Diabetes Qualifiers: Diabetes mellitus type: type 2 Is this a current diagnosis for this admission?: Yes Plan: Holding oral medications while admitted. Consistent carb diet. Accu-Cheks before meals and at bedtime with sliding scale insulin. Hyperglycemia protocol in place. - Plan Summary Summary: Patient is medically cleared for discharge pending disposition by mental health services. - Time Time Spent with patient: 35 or more minutes Medications reviewed and adjusted accordingly: Yes Anticipated discharge: Other - Disposition per Mental Health team Within: when bed available
[2019-04-17] MEDS: CEFTRIAXONE 1 GM/D5W RTU 1 GM/50 ML RTUPB IV SCH (17:33)
[2019-04-17] MEDS: HYDRALAZINE HCL INJ/PF 20 MG/1 ML SDV IV PRN (23:31)
[2019-04-18] MEDS ORDERED: PREGABALIN 75 MG CAPSULE PO ONE (00:45)
[2019-04-18 06:21] LABS: HEMATOCRIT 38.1 % (36.0-47.0); HEMOGLOBIN 13.3 g/dL (12.0-15.5); MEAN CORPUSCULAR HEMOGLOBIN 27.3 pg (27.0-33.4); MEAN CORPUSCULAR VOLUME 78 fl (80-97); PLATELET COUNT 323 10^3/uL (150-450); RED BLOOD COUNT 4.88 10^6/uL (3.72-5.28); WHITE BLOOD COUNT 6.9 10^3/uL (4.0-10.5)
[2019-04-18] MEDS: HEPARIN SOD (PORCINE) 5,000 UNIT/ML 1 ML VIAL SUBCUT SCH ×3 (06:36→21:05)
[2019-04-18 06:42] LABS: ANION GAP 12 (5-19); BLOOD UREA NITROGEN 12 mg/dL (7-20); CALCIUM 9.9 mg/dL (8.4-10.2); CARBON DIOXIDE 22 mmol/L (22-30); CHLORIDE 105 mmol/L (98-107); GLUCOSE 134 mg/dL (75-110); POTASSIUM 3.6 mmol/L (3.6-5.0)
[2019-04-18] MEDS: INSULIN LISPRO 100 UNIT/ML 3 ML VIAL SUBCUT SCH ×4 (09:43→21:04)
[2019-04-18] MEDS: FAMOTIDINE 20 MG TABLET PO SCH ×2 (09:48→21:04)
[2019-04-18] MEDS: FUROSEMIDE 40 MG TABLET PO SCH ×2 (09:48→17:23)
[2019-04-18] MEDS: MELOXICAM 15 MG TABLET PO SCH (09:48)
[2019-04-18] MEDS: AMLODIPINE BESYLATE 10 MG TABLET PO SCH (09:49)
[2019-04-18] MEDS: POTASSIUM CHLORIDE 10 MEQ CAPSULE.ER PO SCH (09:49)
[2019-04-18] MEDS: CLONIDINE HCL 0.1 MG TABLET PO SCH ×2 (09:49→17:23)
[2019-04-18] MEDS: CLOPIDOGREL BISULFATE 75 MG TABLET PO SCH (09:49)
[2019-04-18] MEDS: DOCUSATE SODIUM 100 MG CAPSULE PO SCH (09:50)
[2019-04-18] MEDS ORDERED: LISINOPRIL 10 MG TABLET PO SCH (10:00)
[2019-04-18] MEDS ORDERED: (PENDING PHARMACY ID) (Lisinopril/Hydrochlorothiazide [Lisinopril-Hctz 20-25 Mg Tab] 1 EAC PO SCH (10:00)
[2019-04-18] MEDS ORDERED: HYDROCHLOROTHIAZIDE 25 MG TABLET PO SCH (10:00)
[2019-04-18] MEDS: DIVALPROEX SODIUM 250 MG TAB.SR.24H PO SCH (17:23)
[2019-04-18] MEDS: CEFTRIAXONE 1 GM/D5W RTU 1 GM/50 ML RTUPB IV SCH (17:24)
--- NOTE | 2019-04-18 19:34 | PDOC PROGRESS REPORT ---
Subjective Progress Note for:: 04/18/19 Subjective:: SHARON MCPHERSON is a 68 year old female with a past medical history significant for hypertension, hyperlipidemia, obesity, DM 2, chronic pain, and depression who was admitted 04/17/2019 for suicidal and homicidal ideation, likely related to manic bipolar manic episode, and incidentally found to have a UTI. Patient was seen on morning rounds. She was found sitting up to the edge of the bed, comfortably on room air, eating her breakfast. She continues to have grand iose thinking, confabulation, flight of ideas, and today delusions regarding millions of dollars of embezzled money. She tells me that because she voluntarily came in to discuss her stress related to embezzlement, and has now received the help she needs, is ready to be discharged to home. She does not seem to understand my explanation that she is here under IVC status and cannot discharged until cleared from the mental health perspective. She denies fever, chills, chest pain, palpitations, dyspnea, abdominal pain, nausea, vomiting, diarrhea, and dysuria. She has no specific medical questions or concerns at this time. No concerns per nursing. Reason For Visit: URINARY TRACT INFECTION,SUICIDAL IDEATION,CHRONIC Physical Exam Vital Signs: Temp Pulse Resp BP Pulse Ox 97.3 F 90 16 150/66 H 97 04/18/19 16:29 04/18/19 16:29 04/18/19 16:29 04/18/19 16:29 04/18/19 16:29 Intake & Output 04/17/19 04/18/19 04/19/19 06:59 06:59 06:59 Intake Total 2610 522 Balance 2610 522 Weight 96 kg 79.3 kg General appearance: PRESENT: no acute distress, obese, well-developed, well- nourished Head exam: PRESENT: atraumatic, normocephalic Eye exam: PRESENT: conjunctiva pink, EOMI, PERRLA. ABSENT: scleral icterus Mouth exam: PRESENT: moist, tongue midline Teeth exam: PRESENT: poor dentation Respiratory exam: PRESENT: clear to auscultation jessica, symmetrical, unlabored. ABSENT: rales, rhonchi, wheezes Cardiovascular exam: PRESENT: RRR, +S1, +S2. ABSENT: diastolic murmur, rubs, systolic murmur Pulses: PRESENT: normal dorsalis pedis pul Vascular exam: PRESENT: normal capillary refill GI/Abdominal exam: PRESENT: normal bowel sounds, soft. ABSENT: distended, guarding, mass, organolmegaly, rebound, tenderness Rectal exam: PRESENT: deferred Extremities exam: PRESENT: full ROM. ABSENT: calf tenderness, clubbing, pedal edema Musculoskeletal exam: PRESENT: ambulatory Neurological exam: PRESENT: alert, awake, oriented to person, oriented to place, oriented to time, CN II-XII grossly intact. ABSENT: oriented to situation, motor sensory deficit Psychiatric exam: PRESENT: agitated, manic, suicidal ideation. ABSENT: homicidal ideation Focused psych exam: PRESENT: delusional, flight of ideas, paranoid, restlessness Skin exam: PRESENT: dry, intact, warm. ABSENT: cyanosis, rash Results Laboratory Results: 04/18/19 05:50 04/18/19 05:50 04/18/19 04/18/19 05:50 05:50 WBC 6.9 RBC 4.88 Hgb 13.3 Hct 38.1 MCV 78 L MCH 27.3 MCHC 35.0 RDW 15.0 H Plt Count 323 Sodium 139.4 Potassium 3.6 Chloride 105 Carbon Dioxide 22 Anion Gap 12 BUN 12 Creatinine 0.80 Est GFR ( Amer) > 60 Glucose 134 H Calcium 9.9 04/17/19 00:35 Clean Catch Midstream Urine Culture - Final Mixed Urogenital Misha Assessment and Plan - Diagnosis (1) Suicidal ideation Is this a current diagnosis for this admission?: Yes Plan: Currently on IVC papers. 1:[address] . Mental health services consulted. Medications per their recommendations. Discharge planning is consulted. (2) Homicidal ideation Is this a current diagnosis for this admission?: Yes Plan: Currently on IVC papers. 1:[address] Mental health services consulted. Medications per their recommendations. Discharge planning is consulted. (3) Hypertension Is this a current diagnosis for this admission?: Yes Plan: Have resumed the patient's home dose amlodipine, clonidine, lisinopril and and furosemide. PRN IV hydralazine as needed for blood pressure control. (4) Urinary tract infection Qualifiers: Urinary tract infection type: acute cystitis Hematuria presence: without hematuria Qualified Code(s): N30.00 - Acute cystitis without hematuria Is this a current diagnosis for this admission?: Yes Plan: UTI by urinalysis. Blood are negative to date. Urine culture demonstrates normal urogenital misha. IV Rocephin; day #2. Will discontinue after third dose tomorrow. (5) Diabetes Qualifiers: Diabetes mellitus type: type 2 Is this a current diagnosis for this admission?: Yes Plan: Holding oral medications while admitted. Consistent carb diet. Accu-Cheks before meals and at bedtime with sliding scale insulin. Hyperglycemia protocol in place. (6) Chronic back pain Qualifiers: Back pain location: low back pain Back pain laterality: midline Sciatica presence: without sciatica Qualified Code(s): M54.5 - Low back pain; G89.29 - Other chronic pain Is this a current diagnosis for this admission?: Yes Plan: Received MRI report from [facility], dated 2009, revealing L5/S1 stenosis and degeneration. Did confirm with the patient's , that she does have preoperative appointments for possible disc replacement or fusion by Dr. Tonio Rojo in [place]. We will call Dr. Rojo office to ensure that there are no immediate orthopedic needs or spinal precautions necessary. Resume lower dose Lyrica; 50 mg 3 times a day (typically utilizes 150 mg 3 times daily at home). Continue Tylenol and tramadol as needed. - Plan Summary Summary: Patient is medically cleared for discharge pending disposition by mental health services. - Time Time Spent with patient: 35 or more minutes Medications reviewed and adjusted accordingly: Yes Anticipated discharge: Other - Inpatient psychiatric facility. Within: when bed available
[2019-04-18] MEDS: HYDRALAZINE HCL INJ/PF 20 MG/1 ML SDV IV PRN (20:35)
[2019-04-18] MEDS: ACETAMINOPHEN 325 MG TABLET PO PRN (20:37)
[2019-04-18] MEDS: PREGABALIN 50 MG CAPSULE PO SCH (20:54)
[2019-04-18] MEDS: ATORVASTATIN CALCIUM 40 MG TABLET PO SCH (21:04)
[2019-04-18] MEDS: TRAMADOL HCL 50 MG TABLET PO PRN (22:52)
[2019-04-19] MEDS: DIVALPROEX SODIUM 250 MG TAB.SR.24H PO SCH ×2 (06:35→18:25)
[2019-04-19] MEDS: HEPARIN SOD (PORCINE) 5,000 UNIT/ML 1 ML VIAL SUBCUT SCH ×3 (06:36→22:20)
[2019-04-19] MEDS: HYDRALAZINE HCL INJ/PF 20 MG/1 ML SDV IV PRN (07:42)
[2019-04-19] MEDS: INSULIN LISPRO 100 UNIT/ML 3 ML VIAL SUBCUT SCH ×4 (08:35→22:20)
[2019-04-19] MEDS: AMLODIPINE BESYLATE 10 MG TABLET PO SCH (09:30)
[2019-04-19] MEDS: CLONIDINE HCL 0.1 MG TABLET PO SCH ×2 (09:31→18:25)
[2019-04-19] MEDS: FAMOTIDINE 20 MG TABLET PO SCH ×2 (09:31→22:18)
[2019-04-19] MEDS: FUROSEMIDE 40 MG TABLET PO SCH ×2 (09:31→18:25)
[2019-04-19] MEDS: CLOPIDOGREL BISULFATE 75 MG TABLET PO SCH (09:31)
[2019-04-19] MEDS: PREGABALIN 50 MG CAPSULE PO SCH ×3 (09:32→18:25)
[2019-04-19] MEDS: MELOXICAM 15 MG TABLET PO SCH (09:32)
[2019-04-19] MEDS: DOCUSATE SODIUM 100 MG CAPSULE PO SCH (09:32)
[2019-04-19] MEDS: POTASSIUM CHLORIDE 10 MEQ CAPSULE.ER PO SCH (09:33)
[2019-04-19] MEDS: LISINOPRIL 10 MG TABLET PO SCH (09:42)
--- NOTE | 2019-04-19 17:21 | PDOC PROGRESS REPORT ---
Subjective Progress Note for:: 04/19/19 Subjective:: SHARON MCPHERSON is a 68 year old female with a past medical history significant for hypertension, hyperlipidemia, obesity, DM 2, chronic pain, and depression who was admitted 04/17/2019 for suicidal and homicidal ideation, likely related to manic bipolar manic episode, and incidentally found to have a UTI. Patient was seen on morning rounds. She was found sitting up in bed, comfortably on room air. She continues to have flight of ideas and confabulation today, though much improved from yesterday. She states that she is feeling well and has no new health complaints. She does ask about outpatient psychiatric services; she has been informed that mental health are seeking inpatient services. She denies fever, chills, chest pain, palpitations, dyspnea, abdominal pain, nausea, vomiting, diarrhea, and dysuria. She has no specific medical questions or concerns at this time. No concerns per nursing. Reason For Visit: URINARY TRACT INFECTION,SUICIDAL IDEATION,CHRONIC Physical Exam Vital Signs: Temp Pulse Resp BP Pulse Ox 97.4 F 84 14 132/59 H 96 04/19/19 11:15 04/19/19 11:15 04/19/19 11:15 04/19/19 11:15 04/19/19 11:15 Intake & Output 04/18/19 04/19/19 04/20/19 06:59 06:59 06:59 Intake Total 2610 1269 Balance 2610 1269 Weight 79.3 kg 79.3 kg General appearance: PRESENT: no acute distress, obese, well-developed, well- nourished Head exam: PRESENT: atraumatic, normocephalic Eye exam: PRESENT: conjunctiva pink, EOMI, PERRLA. ABSENT: scleral icterus Ear exam: PRESENT: normal external ear exam Mouth exam: PRESENT: moist, tongue midline Teeth exam: PRESENT: poor dentation Respiratory exam: PRESENT: clear to auscultation jessica, symmetrical, unlabored. ABSENT: rales, rhonchi, wheezes Cardiovascular exam: PRESENT: RRR, +S1, +S2. ABSENT: diastolic murmur, rubs, systolic murmur Vascular exam: PRESENT: normal capillary refill GI/Abdominal exam: PRESENT: normal bowel sounds, soft. ABSENT: distended, guarding, mass, organolmegaly, rebound, tenderness Rectal exam: PRESENT: deferred Extremities exam: PRESENT: full ROM. ABSENT: calf tenderness, clubbing, pedal edema Musculoskeletal exam: PRESENT: ambulatory Neurological exam: PRESENT: alert, awake, oriented to person, oriented to place, oriented to time, CN II-XII grossly intact. ABSENT: oriented to situation, motor sensory deficit Psychiatric exam: PRESENT: appropriate affect, normal mood. ABSENT: homicidal ideation, suicidal ideation Focused psych exam: PRESENT: flight of ideas, restlessness, other - labile mood Skin exam: PRESENT: dry, intact, warm. ABSENT: cyanosis, rash Results Laboratory Results: 04/18/19 05:50 04/18/19 05:50 04/17/19 00:35 Clean Catch Midstream Urine Culture - Final Mixed Urogenital Misha Assessment and Plan - Diagnosis (1) Suicidal ideation Is this a current diagnosis for this admission?: Yes Plan: Currently on IVC papers. 1:[address] . Mental health services consulted. Medications per their recommendations. Discharge planning is consulted. (2) Homicidal ideation Is this a current diagnosis for this admission?: Yes Plan: Currently on IVC papers. 1:[address] Mental health services consulted. Medications per their recommendations. Discharge planning is consulted. (3) Hypertension Is this a current diagnosis for this admission?: Yes Plan: Significantly improved today; 132/59 Have resumed the patient's home dose amlodipine, clonidine, and furosemide. Have increased lisinopril to 20 mg daily. PRN IV hydralazine as needed for blood pressure control. (4) Urinary tract infection Qualifiers: Urinary tract infection type: acute cystitis Hematuria presence: without hematuria Qualified Code(s): N30.00 - Acute cystitis without hematuria Is this a current diagnosis for this admission?: Yes Plan: UTI by urinalysis. Blood are negative to date. Urine culture demonstrates normal urogenital misha. IV Rocephin; day #3. Will discontinue tonight after 3rd dose. (5) Diabetes Qualifiers: Diabetes mellitus type: type 2 Is this a current diagnosis for this admission?: Yes Plan: Holding oral medications while admitted. Consistent carb diet. Accu-Cheks before meals and at bedtime with sliding scale insulin. Hyperglycemia protocol in place. (6) Chronic back pain Qualifiers: Back pain location: low back pain Back pain laterality: midline Sciatica presence: without sciatica Qualified Code(s): M54.5 - Low back pain; G89.29 - Other chronic pain Is this a current diagnosis for this admission?: Yes Plan: Received MRI report from [facility], dated 2009, revealing L5/S1 stenosis and degeneration. Did confirm with the patient's , that she does have preoperative appointments for possible disc replacement or fusion by Dr. Tonio Rojo in [place]. Received records from Dr. Hui's office today. Patient is in pre-op process for L4/5, L5/S1 surgery for bulging disc and significant L5 degeneration. No specific spinal/back protective measures required; no spine precautions or brace recommended. Did recommend front wheel walker for wieght off loading and pain reduction; not due to gait or spine instability. There are no neuro deficits or acute back findings; no red flags. Patient has a chronic, stable, back condition that should not be an impediment to discharge to an inpatient psychiatric facility. She does NOT require increased nursing care due to her back. Resume lower dose Lyrica; 50 mg 3 times a day (typically utilizes 150 mg 3 times daily at home). Continue Tylenol and tramadol as needed. - Plan Summary Summary: Patient is medically cleared for discharge; pending disposition by mental health services. - Time Time Spent with patient: 25-34 minutes Medications reviewed and adjusted accordingly: Yes Anticipated discharge: Other - in-patient psychiatric services Within: when bed available
[2019-04-19] MEDS: CEFTRIAXONE 1 GM/D5W RTU 1 GM/50 ML RTUPB IV SCH (18:26)
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
[2019-04-19] MEDS: ATORVASTATIN CALCIUM 40 MG TABLET PO SCH (22:18)
[2019-04-19] MEDS: TRAMADOL HCL 50 MG TABLET PO PRN (22:29)
[2019-04-20] MEDS: DIVALPROEX SODIUM 250 MG TAB.SR.24H PO SCH ×2 (05:21→17:34)
[2019-04-20] MEDS: HEPARIN SOD (PORCINE) 5,000 UNIT/ML 1 ML VIAL SUBCUT SCH ×3 (05:22→21:58)
[2019-04-20] MEDS: INSULIN LISPRO 100 UNIT/ML 3 ML VIAL SUBCUT SCH ×4 (08:46→21:57)
[2019-04-20] MEDS: PREGABALIN 50 MG CAPSULE PO SCH ×3 (09:02→17:34)
[2019-04-20] MEDS: LISINOPRIL 10 MG TABLET PO SCH (09:03)
[2019-04-20] MEDS: MELOXICAM 15 MG TABLET PO SCH (09:03)
[2019-04-20] MEDS: POTASSIUM CHLORIDE 10 MEQ CAPSULE.ER PO SCH (09:03)
[2019-04-20] MEDS: CLOPIDOGREL BISULFATE 75 MG TABLET PO SCH (09:03)
[2019-04-20] MEDS: FAMOTIDINE 20 MG TABLET PO SCH ×2 (09:04→21:57)
[2019-04-20] MEDS: DOCUSATE SODIUM 100 MG CAPSULE PO SCH (09:04)
[2019-04-20] MEDS: AMLODIPINE BESYLATE 10 MG TABLET PO SCH (09:04)
[2019-04-20] MEDS: FUROSEMIDE 40 MG TABLET PO SCH ×2 (09:04→17:34)
[2019-04-20] MEDS: CLONIDINE HCL 0.1 MG TABLET PO SCH ×2 (09:04→17:34)
[2019-04-20] MEDS: TRAMADOL HCL 50 MG TABLET PO PRN ×2 (11:54→20:13)
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
[2019-04-20 18:16] LABS: APPEARANCE,URINE CLEAR; BILIRUBIN,URINE NEGATIVE (NEGATIVE); COLOR,URINE STRAW; GLUCOSE, URINE 50 mg/dL (NEGATIVE); KETONES,URINE NEGATIVE (NEGATIVE); LEUKOCYTE ESTERASE,URINE MODERATE (NEGATIVE); NITRITE,URINE NEGATIVE (NEGATIVE); PROTEIN,URINE NEGATIVE (NEGATIVE); URINE SPECIFIC GRAVITY 1.006; UROBILINOGEN,URINE NEGATIVE mg/dL (<2.0)
[2019-04-20] MEDS: ACETAMINOPHEN 325 MG TABLET PO PRN (21:57)
[2019-04-20] MEDS: ATORVASTATIN CALCIUM 40 MG TABLET PO SCH (21:57)
[2019-04-21] MEDS: TRAMADOL HCL 50 MG TABLET PO PRN ×2 (04:53→19:32)
[2019-04-21] MEDS: HEPARIN SOD (PORCINE) 5,000 UNIT/ML 1 ML VIAL SUBCUT SCH ×3 (05:01→21:02)
[2019-04-21] MEDS: DIVALPROEX SODIUM 250 MG TAB.SR.24H PO SCH ×2 (05:01→17:00)
[2019-04-21] MEDS: INSULIN LISPRO 100 UNIT/ML 3 ML VIAL SUBCUT SCH ×4 (09:34→21:03)
[2019-04-21] MEDS: FAMOTIDINE 20 MG TABLET PO SCH ×2 (09:36→21:02)
[2019-04-21] MEDS: AMLODIPINE BESYLATE 10 MG TABLET PO SCH (09:36)
[2019-04-21] MEDS: CLONIDINE HCL 0.1 MG TABLET PO SCH ×2 (09:36→17:00)
[2019-04-21] MEDS: PREGABALIN 50 MG CAPSULE PO SCH ×3 (09:36→17:00)
[2019-04-21] MEDS: CLOPIDOGREL BISULFATE 75 MG TABLET PO SCH (09:37)
[2019-04-21] MEDS: MELOXICAM 15 MG TABLET PO SCH (09:37)
[2019-04-21] MEDS: FUROSEMIDE 40 MG TABLET PO SCH ×2 (09:37→17:00)
[2019-04-21] MEDS: POTASSIUM CHLORIDE 10 MEQ CAPSULE.ER PO SCH (09:37)
[2019-04-21] MEDS: DOCUSATE SODIUM 100 MG CAPSULE PO SCH (09:38)
[2019-04-21] MEDS: LISINOPRIL 10 MG TABLET PO SCH (09:38)
[2019-04-21] MEDS: ACETAMINOPHEN 325 MG TABLET PO PRN ×3 (09:41→21:02)
--- NOTE | 2019-04-21 11:07 | RADIOLOGY REPORT (SQ) ---
EXAM DESCRIPTION: CHEST SINGLE VIEW COMPLETED DATE/TIME: 04/21/2019 10:40 am REASON FOR STUDY: TB r/o COMPARISON: None. NUMBER OF VIEWS: One view. TECHNIQUE: Single frontal radiographic view of the chest acquired. LIMITATIONS: None. FINDINGS: LUNGS AND PLEURA: No opacities, masses or pneumothorax. No pleural effusion. MEDIASTINUM AND HILAR STRUCTURES: No masses. Contour normal. HEART AND VASCULAR STRUCTURES: Heart enlarged without failure. Normal vasculature. BONES: No acute findings. HARDWARE: None in the chest. OTHER: No other significant finding. IMPRESSION: HEART ENLARGED WITHOUT FAILURE. NO OTHER SIGNIFICANT RADIOGRAPHIC FINDING IN THE CHEST. TECHNICAL DOCUMENTATION: JOB ID: [id number] [employer]- All Rights Reserved Reading location - IP/workstation name: [email or web address]
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
--- NOTE | 2019-04-21 14:16 | Progress Note ---
Provider Note Provider Note: SHARON MCPHERSON is a 68 year old female with a past medical history significant for hypertension, hyperlipidemia, obesity, DM 2, chronic pain, and depression who was admitted 04/17/2019 for suicidal and homicidal ideation, likely related to manic bipolar manic episode, and incidentally found to have a UTI. Patient has been medically cleared and discharged from the hospitalist services. Overnight events, vital signs, imagining and laboratory results have been reviewed. Repeat Urinalysis and prior Urine Culture confirms that the patient's UTI has been adequately treated. She does not have an active urinary tract infection at this time. CXR requested by psychiatric services has been completed. She does NOT have evidence of TB. She has no acute respiratory symptoms or cardiopulmonary findings on CXR. Patient remains in stable condition and is medically cleared/discharged. She is medically appropriate for transfer to inpatient psychiatric facility and has NO ongoing nursing needs. Remains under IVC status pending disposition by the mental health services.
[2019-04-21] MEDS: ATORVASTATIN CALCIUM 40 MG TABLET PO SCH (21:02)
[2019-04-22] MEDS: DIVALPROEX SODIUM 250 MG TAB.SR.24H PO SCH (06:36)
[2019-04-22] MEDS: HEPARIN SOD (PORCINE) 5,000 UNIT/ML 1 ML VIAL SUBCUT SCH (06:37)
[2019-04-22] MEDS: INSULIN LISPRO 100 UNIT/ML 3 ML VIAL SUBCUT SCH (07:11)
[2019-04-22 08:14] VITALS: BP 175/77
[2019-04-22] MEDS: POTASSIUM CHLORIDE 10 MEQ CAPSULE.ER PO SCH (10:04)
[2019-04-22] MEDS: PREGABALIN 50 MG CAPSULE PO SCH (10:04)
[2019-04-22] MEDS: CLONIDINE HCL 0.1 MG TABLET PO SCH (10:05)
[2019-04-22] MEDS: FAMOTIDINE 20 MG TABLET PO SCH (10:05)
[2019-04-22] MEDS: DOCUSATE SODIUM 100 MG CAPSULE PO SCH (10:05)
[2019-04-22] MEDS: MELOXICAM 15 MG TABLET PO SCH (10:05)
[2019-04-22] MEDS: AMLODIPINE BESYLATE 10 MG TABLET PO SCH (10:06)
[2019-04-22] MEDS: LISINOPRIL 10 MG TABLET PO SCH (10:06)
[2019-04-22] MEDS: FUROSEMIDE 40 MG TABLET PO SCH (10:06)
[2019-04-22] MEDS: CLOPIDOGREL BISULFATE 75 MG TABLET PO SCH (10:06)
== END 2019-04-22 13:01 ==
LOC: ER 22:55 → EH 04-17 10:57 → INTOOBSV 04-17 10:57 → 4N 04-17 12:49
PROVIDERS: ADMIT Internal Medicine; ATTEND Internal Medicine
DX: R45.851 Suicidal ideations (principal); R45.850 Homicidal ideations; I10 Essential (primary) hypertension; N30.00 Acute cystitis without hematuria; E11.9 Type 2 diabetes mellitus without complications; M51.37 Other intervertebral disc degeneration, lumbosacral region; M48.07 Spinal stenosis, lumbosacral region; E86.0 Dehydration; D72.829 Elevated white blood cell count, unspecified; R41.82 Altered mental status, unspecified; E78.5 Hyperlipidemia, unspecified; F32.9 Major depressive disorder, single episode, unspecified; F91.9 Conduct disorder, unspecified; E66.9 Obesity, unspecified; M19.90 Unspecified osteoarthritis, unspecified site; Z79.899 Other long term (current) drug therapy; Z79.82 Long term (current) use of aspirin; Z91.410 Personal history of adult physical and sexual abuse
CPT/HCPCS: 93005; 99285; 96372; 96360; 36415 ×2; 87040; 87086; 82962 ×6; 80307 ×4; 84443; 85025; 85027; 80048; 80053; 81001 ×2; 71045; 93010; 94640; G0378 ×7; A9270 ×75; J1644 ×6; J1630; J0360 ×3; J2060; J7030; J0696 ×3; J1815; J3490

== ENCOUNTER 2019-08-02 11:59 | Inpatient (IN) | payer MEDICARE, BC ==
[2019-08-02] MEDS ORDERED: NICARDIPINE HCL RTU, ISO-OS 20 MG/200 ML RTUINJ IV PRN (12:50)
--- NOTE | 2019-08-02 12:55 | ER Document Report ---
ED General - General Chief Complaint: High Blood Pressure Stated Complaint: HIGH BLOOD PRESSURE Notes: Patient presents with left ocular frontal headache onset about a week ago with worsening vision gradually over that time., Can barely see the eye chart at this point in the left side. Seen in ophthalmology, pressures normal but found to have left-sided optic disc edema and a blood pressure of 220Dr. Ergas sent the patient here and activated came with on the phone. She has no unilateral neuro symptoms. TRAVEL OUTSIDE OF THE [place] IN LAST 30 DAYS: No - Related Data Allergies/Adverse Reactions: amoxicillin Allergy (Verified 04/17/19 12:16) citalopram Allergy (Verified 04/17/19 12:16) duloxetine Allergy (Verified 04/17/19 12:16) liraglutide Allergy (Verified 04/17/19 12:16) milk Allergy (Verified 04/17/19 12:16) montelukast Allergy (Verified 04/17/19 12:16) RASH phenobarbital Allergy (Verified 04/17/19 12:16) RASH POTASSIUM CLAVULANATE Allergy (Uncoded 04/17/19 12:16) Past Medical History - Social History Smoking Status: Former Smoker Family History: Reviewed & Not Pertinent - Past Medical History Cardiac Medical History: Reports: Hx Hypercholesterolemia, Hx Hypertension Denies: Hx Heart Attack Pulmonary Medical History: Reports: Hx Asthma Neurological Medical History: Denies: Hx Cerebrovascular Accident, Hx Seizures Endocrine Medical History: Reports: Hx Diabetes Mellitus Type 2 GI Medical History: Denies: Hx Hepatitis, Hx Hiatal Hernia, Hx Ulcer Musculoskeletal Medical History: Reports Hx Arthritis Psychiatric Medical History: Reports: Hx Depression Infectious Medical History: Denies: Hx Hepatitis Past Surgical History: Reports: Hx Cardiac Surgery - stents, Hx Hysterectomy. Denies: Hx Mastectomy, Hx Open Heart Surgery, Hx Pacemaker - Immunizations Hx Diphtheria, Pertussis, Tetanus Vaccination: No Review of Systems - Review of Systems Notes: REVIEW OF SYSTEMS GEN: Denies fever, chills, weight loss ENT: Denies sore throat, nasal discharge, ear pain EYES: Visual loss left side CV: Denies chest pain, palpitations, edema RESP: Denies cough, shortness of breath, wheezing GI: Denies abdominal pain, nausea, vomiting, diarrhea MSK: Denies joint pain/swelling, edema, SKIN: Denies rash, skin lesions LYMPH: Denies swollen glands/lymph nodes NEURO headache, denies focal weakness or numbness, dizziness PSYCH: Denies depression, suicidal or homicidal ideation PHYSICAL EXAMINATION General: No acute distress, well-nourished Head: Atraumatic, normocephalic ENT: Mouth normal, oropharynx moist, no exudates or tonsillar enlargement Eyes: Conjunctiva normal, pupils equal, lids normal. Optic disc edema on left. Bilaterally dilated without pupil responsecame from eye doctor Neck: No JVD, supple, no guarding CVS: Normal rate, regular rhythm, no murmurs Resp: No resp distress, equal and normal breath sounds bilaterally GI: Nondistended, soft, no tenderness to palpation, no rebound or guarding Ext: No deformities, no edema, normal range of motion in upper and lower ext Back: No CVA or midline TTP Skin: No rash, warm Lymphatic: No lymphadeopathy noted Neuro: Awake, alert. Face symmetric. GCS 15. 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 Reviewed with ophthalmology by phone. Do not think this is any other diagnosis other than damage from hypertension. The patient's pressure is out of control but is better here at 190 than it was in the office at 220. She has no unilateral neuro deficits. Check head CT negative check labs no evidence of a significant electrolyte issues. CT negative labs unremarkable. Given hydralazinepressure is coming down slowly on reassessment. Discussed with ICU does not think he needs drip or admission to ICU. Dr. Caputo consulted. Discussed with Dr. Stewart for admission to IMCU. 08/02/19 14:15 - Vital Signs Vital signs: Temp Pulse Resp BP Pulse Ox 97.9 F 73 26 H 172/92 H 93 08/02/19 12:24 08/02/19 12:24 08/02/19 13:52 08/02/19 13:52 08/02/19 13:52 - Laboratory Result Diagrams: 08/02/19 12:57 08/02/19 12:57 Laboratory results interpreted by me: 08/02/19 08/02/19 12:57 12:57 MCH 26.8 L RDW 15.2 H Sodium 136.9 L Glucose 135 H Critical Care Note - Critical Care Note Total time excluding time spent on procedures (mins): 32 Comments: The above patient is critically ill. Not including procedures, but including direct re-evaluations, speaking with patient and/or consultants, interpreting results, and documenting, I spent the total amount of minute listed listed above on critical care time Discharge - Discharge Clinical Impression: Hypertensive emergency without congestive heart failure Condition: Good Disposition: ADMITTED INPATIENT Admitting Provider: Terry (Hospitalist) Unit Admitted: [facility]
[2019-08-02] MEDS ORDERED: HYDRALAZINE HCL INJ/PF 20 MG/1 ML SDV IV ONE (13:11)
[2019-08-02 13:18] LABS: ABSOLUTE EOSINOPHILS # (AUTO) 0.3 10^3/uL (0.0-0.6); ABSOLUTE LYMPHOCYTES (AUTO) 1.6 10^3/uL (0.5-4.7); ABSOLUTE MONOCYTES (AUTO) 0.7 10^3/uL (0.1-1.4); BASOPHILS % (AUTO) 0.5 % (0-2); EOSINOPHILS % (AUTO) 3.7 % (0-6); HEMATOCRIT 37.4 % (36.0-47.0); HEMOGLOBIN 12.6 g/dL (12.0-15.5); LYMPHOCYTES % (AUTO) 20.7 % (13-45); MEAN CORPUSCULAR HEMOGLOBIN 26.8 pg (27.0-33.4); MEAN CORPUSCULAR HGB CONC 33.7 g/dL (32.0-36.0); MEAN CORPUSCULAR VOLUME 80 fl (80-97); PLATELET COUNT 280 10^3/uL (150-450); RED CELL DISTRIBUTION WIDTH 15.2 % (11.5-14.0); SEGMENTED NEUTROPHILS % (AUTO) 66.1 % (42-78); TOTAL CELLS COUNTED % (AUTO) 100 %; WHITE BLOOD COUNT 7.6 10^3/uL (4.0-10.5)
--- NOTE | 2019-08-02 13:30 | RADIOLOGY REPORT (SQ) ---
EXAM DESCRIPTION: CT HEAD WITHOUT COMPLETED DATE/TIME: 08/02/2019 1:15 pm REASON FOR STUDY: TEJEDA COMPARISON: None. TECHNIQUE: Axial images acquired through the brain without intravenous contrast. Images reviewed wi th bone, brain and subdural windows. Additional sagittal and coronal reconstructions were generated. Images stored on PACS. All CT scanners at this facility use dose modulation, iterative reconstruction, and/or weight based d osing when appropriate to reduce radiation dose to as low as reasonably achievable (ALARA). [facility]: Dose Right [facility]: CareDose [facility]: Dose Right [facility]: Teradose 4D [facility]: Sonavation RADIATION DOSE: CT Rad equipment meets quality standard of care and radiation dose reduction techniq ues were employed. CTDIvol: 53.2 mGy. DLP: 1044 mGy-cm. mGy. LIMITATIONS: None. FINDINGS: VENTRICLES: Normal size and contour. CEREBRUM: No masses. No hemorrhage. No midline shift. No evidence for acute infarction. Areas of l ow density in the white matter most likely chronic small vessel ischemic changes. CEREBELLUM: No masses. No hemorrhage. No alteration of density. No evidence for acute infarction. EXTRAAXIAL SPACES: No fluid collections. No masses. ORBITS AND GLOBE: No intra- or extraconal masses. Normal contour of globe without masses. CALVARIUM: No fracture. PARANASAL SINUSES: No fluid or mucosal thickening. SOFT TISSUES: No mass or hematoma. OTHER: No other significant finding. IMPRESSION: MILD CHRONIC MICROVASCULAR ISCHEMIA. NO ACUTE IMAGING FINDINGS IN THE BRAIN. EVIDENCE OF ACUTE STROKE: NO. COMMENT: Quality ID # [id number]: Final reports with documentation of one or more dose reduction techniques (e.g., Automated exposure control, adjustment of the mA and/or kV according to patient size, use of iterative reconstruction technique) TECHNICAL DOCUMENTATION: JOB ID: [id number] 2010 [employer]- All Rights Reserved Reading location - IP/workstation name: [email or web address]
[2019-08-02 13:42] LABS: ANION GAP 7 (5-19); BLOOD UREA NITROGEN 13 mg/dL (7-20); CALCIUM 9.5 mg/dL (8.4-10.2); CARBON DIOXIDE 30 mmol/L (22-30); CHLORIDE 100 mmol/L (98-107); GLUCOSE 135 mg/dL (75-110); POTASSIUM 4.2 mmol/L (3.6-5.0)
[2019-08-02] MEDS ORDERED: HYDRALAZINE HCL INJ/PF 20 MG/1 ML SDV IV PRN (14:39)
[2019-08-02] MEDS ORDERED: ALPRAZOLAM 0.25 MG TABLET PO PRN (14:43)
[2019-08-02] MEDS ORDERED: DEXTROSE 40% GEL 15 GM TUBE PO PRN ×2 (14:48)
[2019-08-02] MEDS ORDERED: GLUCAGON,HUMAN RECOMB 1 MG INJ IM PRN (14:48)
[2019-08-02] MEDS ORDERED: DEXTROSE 50%-WATER 25 GM/50 ML DISP.SYRIN IV PRN ×2 (14:48)
[2019-08-02] MEDS ORDERED: AMLODIPINE BESYLATE 10 MG TABLET PO ONE (15:00)
[2019-08-02] MEDS ORDERED: CARVEDILOL 12.5 MG TABLET PO ONE (15:15)
[2019-08-02] MEDS ORDERED: LISINOPRIL 10 MG TABLET PO ONE (15:15)
[2019-08-02] MEDS ORDERED: CLONIDINE HCL 0.1 MG TABLET PO ONE (15:15)
[2019-08-02] MEDS ORDERED: HYDROCHLOROTHIAZIDE 25 MG TABLET PO ONE (15:15)
[2019-08-02] MEDS: INSULIN LISPRO 100 UNIT/ML 3 ML VIAL SUBCUT SCH ×2 (15:38→23:14)
[2019-08-02] MEDS: TRAMADOL HCL 50 MG TABLET PO PRN ×2 (16:16→23:06)
[2019-08-02] MEDS: PANTOPRAZOLE SODIUM 40 MG TABLET.DR PO SCH (16:16)
--- NOTE | 2019-08-02 17:25 | PDOC H&P ---
History of Present Illness Admission Date/PCP: 08/02/19 14:01 SUNITA LEWIS History of Present Illness: SHARON MCPHERSON is a 69 year old female with a history of hypertension who had problems with vision in her left eye and got an appointment with an carpenter packing who told her that her blood pressure looked like it was high. They checked her blood pressure in the office and apparently it was a systolic of around 220. They called her primary care provider who instructed them to send her to the ER. In the ER her systolic was in the 190s and it responded temporarily to hydralaz ine. The patient is not a very good historian and does not even know the names of the medications that she takes. Fortunately, she had a bag with all of her medication bottles in it. From what I could tell, for blood pressure she takes Coreg, lisinopril, HCTZ, amlodipine, clonidine, and it looks like she also takes Lasix. I did not examine all of the bottles in great detail, but she had multip le bottles of her lisinopril and HCTZ, some from 5 or 6 months ago that were still half full from a 90-day prescription along with a recently filled bottle which looked fairly full. The same thing is true of her clonidine. She had a bottle of amlodipine, a 90-day supply, that was filled in the end of January and therefore should have by the end of April. However, it looks more than half full. Today, it seems that the patient had taken 1 dose of clonidine this morning and none of the others. She said she does not always take her Lasix because it makes her urinate. She had a head CT that was negative. She has no other metabolic derangements at this time. Past Medical History Cardiac Medical History: Reports: Hyperlipidema, Hypertension Denies: Myocardial Infarction Pulmonary Medical History: Reports: Asthma Neurological Medical History: Denies: Seizures Endocrine Medical History: Reports: Diabetes Mellitus Type 2 GI Medical History: Denies: Hepatitis, Hiatal Hernia Musculoskeltal Medical History: Reports: Arthritis Psychiatric Medical History: Reports: Depression Hematology: Reports: Anemia Denies: Sickle Cell Disease Past Surgical History Past Surgical History: Reports: Hysterectomy Denies: Amputation, Mastectomy, Pacemaker Social History Smoking Status: Former Smoker Frequency of Alcohol Use: None Hx Recreational Drug Use: No Drugs: None Hx Prescription Drug Abuse: No Family History Family History: Reviewed & Not Pertinent Parental Family History Reviewed: Yes Children Family History Reviewed: Yes Sibling(s) Family History Reviewed.: Yes Medication/Allergy Home Medications: Alprazolam [Xanax 0.25 mg Tablet] 0.25 mg PO DAILYP PRN 08/02/19 Amlodipine Besylate [Norvasc 10 mg Tablet] 10 mg PO DAILY 08/02/19 Aspirin [Ecotrin 81 mg EC Tablet] 81 mg PO DAILY 08/02/19 Atorvastatin Calcium [Lipitor 40 mg Tablet] 40 mg PO QHS 08/02/19 Clonidine HCl [Catapres 0.1 mg Tablet] 0.1 mg PO Q12 08/02/19 Clopidogrel Bisulfate [Plavix 75 mg Tablet] 75 mg PO DAILY 08/02/19 Furosemide [Lasix 40 mg Tablet] 40 mg PO DAILY 08/02/19 Insulin Aspart [Novolog] 15 units SQ MEALS 08/02/19 Insulin Glargine,Hum.rec.anlog [Toujeo Solostar] 60 units SQ Q12 08/02/19 Lansoprazole [Prevacid 30 mg Odt Tablet] 30 mg PO BID 08/02/19 Potassium Chloride [Klor-Con 10 Meq Tablet ER] 10 meq PO WEFR@1000 08/02/19 Pregabalin [Lyrica 75 mg Capsule] 150 mg PO Q8 08/02/19 Tramadol HCl [Ultram 50 mg Tablet] 50 mg PO Q6HP PRN 08/02/19 Trazodone HCl [Desyrel 50 mg Tablet] 50 mg PO QHS 08/02/19 Allergies/Adverse Reactions: amoxicillin Allergy (Verified 04/17/19 12:16) citalopram Allergy (Verified 04/17/19 12:16) duloxetine Allergy (Verified 04/17/19 12:16) liraglutide Allergy (Verified 04/17/19 12:16) milk Allergy (Verified 04/17/19 12:16) montelukast Allergy (Verified 04/17/19 12:16) RASH phenobarbital Allergy (Verified 04/17/19 12:16) RASH POTASSIUM CLAVULANATE Allergy (Uncoded 04/17/19 12:16) Review of Systems All systems: reviewed and no additional remarkable complaints except as stated - All systems were reviewed and were negative except as noted in the HPI Physical Exam Vital Signs: Temp Pulse Resp BP Pulse Ox 97.9 F 73 22 H 168/111 H 95 08/02/19 12:24 08/02/19 12:24 08/02/19 16:32 08/02/19 16:32 08/02/19 16:32 Intake & Output 08/01/19 08/02/19 08/03/19 06:59 06:59 06:59 Weight 87.543 kg General appearance: PRESENT: no acute distress, cooperative, hard of hearing, morbidly obese Head exam: PRESENT: atraumatic, normocephalic Eye exam: PRESENT: EOMI, PERRLA - Left pupil was sluggish, other - She said out of her left eye it looks like a dark shadow. ABSENT: conjunctival injection, nystagmus, scleral icterus Ear exam: PRESENT: normal external ear exam Mouth exam: PRESENT: dry mucosa, neck supple Teeth exam: PRESENT: poor dentation Throat exam: ABSENT: post pharyngeal erythema Neck exam: PRESENT: full ROM. ABSENT: carotid bruit, JVD, lymphadenopathy, meningismus, tenderness, thyromegaly Respiratory exam: PRESENT: clear to auscultation jessica, symmetrical, unlabored. ABSENT: accessory muscle use, chest wall tenderness, crackles, prolonged expiratory phas, retraction, rhonchi, tachypnea, wheezes Cardiovascular exam: PRESENT: RRR, +S1, +S2 Pulses: PRESENT: normal carotid pulses Vascular exam: PRESENT: normal capillary refill GI/Abdominal exam: PRESENT: normal bowel sounds, soft. ABSENT: distended, guarding, rebound, tenderness Extremities exam: ABSENT: clubbing, pedal edema Musculoskeletal exam: PRESENT: normal inspection. ABSENT: deformity Neurological exam: PRESENT: alert, awake, oriented to person, oriented to place, oriented to time, oriented to situation, normal gait. ABSENT: CN II-XII grossly intact - She has left visual deficit as noted above Psychiatric exam: PRESENT: appropriate affect, normal mood Skin exam: PRESENT: dry, warm Results Laboratory Results: 08/02/19 12:57 08/02/19 12:57 08/02/19 08/02/19 12:57 12:57 WBC 7.6 RBC 4.70 Hgb 12.6 Hct 37.4 MCV 80 MCH 26.8 L MCHC 33.7 RDW 15.2 H Plt Count 280 Seg Neutrophils % 66.1 Sodium 136.9 L Potassium 4.2 Chloride 100 Carbon Dioxide 30 Anion Gap 7 BUN 13 Creatinine 0.78 Est GFR ( Amer) > 60 Glucose 135 H Calcium 9.5 Impressions: Head CT 08/02/19 12:49 IMPRESSION: MILD CHRONIC MICROVASCULAR ISCHEMIA. NO ACUTE IMAGING FINDINGS IN THE BRAIN. EVIDENCE OF ACUTE STROKE: NO. Assessment and Plan - Diagnosis (1) Hypertensive emergency without congestive heart failure Is this a current diagnosis for this admission?: Yes Plan: The first thing to do is to get her back on her home medications. She is on 6 different medications that could affect her blood pressure, so we will restart these. These include Coreg, amlodipine, lisinopril, HCTZ, clonidine, and Lasix. We will also have PRN hydralazine available. Once her blood pressure is controlled, we will consider getting an MRI to better evaluate this monocular visual disturbance. She is on Plavix and once we get her blood pressure little bit better controlled we can continue that. She also takes a statin which we will also continue. (2) Diabetes Qualifiers: Diabetes mellitus type: type 2 Diabetes mellitus half-way insulin use: with termite renewal inspector use Diabetes mellitus complication status: with ophthalmic complications Diabetes mellitus complication detail: with cataract Qualified Code(s): E11.36 - Type 2 diabetes mellitus with diabetic cataract; Z79.4 - adjunct faculty for medical terminology (current) use of insulin Is this a current diagnosis for this admission?: Yes Plan: She has had cataract surgery in the past. We will continue her insulin regimen and put her on a diabetic diet. I will actually start her on a little bit less insulin than what she says she is on because because of her blood pressure medication counts are any indication, she is probably not been taking her insulin as directed either. (3) Monocular visual disturbance Is this a current diagnosis for this admission?: Yes Plan: Of the left eye. Work-up as noted above. - Time Time Spent with patient: 35 or more minutes - Inpatient Certification Based on my medical assessment, after consideration of the patient's comorbidities, presenting symptoms, or acuity I expect that the services needed warrant INPATIENT care.: Yes I certify that my determination is in accordance with my understanding of Medicare's requirements for reasonable and necessary INPATIENT services [42 CFR 412.3e].: Yes Medical Necessity: Significant Comorbidiites Make Outpatient Treatment Too Risky, Need Close Monitoring Due to Risk of Patient Decompensation, Need For Continuous Telemetry Monitoring, Risk of Complication if Not Cared For in Hospital
[2019-08-02] MEDS ORDERED: (PENDING PHARMACY ID) (Lansoprazole 30 MG) PO SCH (18:00)
[2019-08-02] MEDS ORDERED: INFLUENZA QUAD (6MOS+) 2019-20 VAC 0.5 ML SYR IM ONE (21:44)
[2019-08-02] MEDS ORDERED: (PENDING PHARMACY ID) (Insulin Glargine,Hum.Rec.Anlog [Toujeo Solostar] 30 UNITS) SUBCUT SCH ×2 (22:00)
[2019-08-02] MEDS: CLONIDINE HCL 0.1 MG TABLET PO SCH (23:06)
[2019-08-02] MEDS: TRAZODONE HCL 50 MG TABLET PO SCH (23:06)
[2019-08-02] MEDS: ATORVASTATIN CALCIUM 40 MG TABLET PO SCH (23:06)
[2019-08-02] MEDS: CARVEDILOL 12.5 MG TABLET PO SCH (23:06)
[2019-08-03] MEDS: CLONIDINE HCL 0.1 MG TABLET PO SCH ×3 (05:04→22:04)
[2019-08-03] MEDS: PANTOPRAZOLE SODIUM 40 MG TABLET.DR PO SCH ×2 (05:04→17:20)
[2019-08-03 05:30] LABS: ANION GAP 8 (5-19); BLOOD UREA NITROGEN 17 mg/dL (7-20); CALCIUM 9.1 mg/dL (8.4-10.2); CARBON DIOXIDE 24 mmol/L (22-30); CHLORIDE 101 mmol/L (98-107); GLUCOSE 135 mg/dL (75-110); POTASSIUM 3.8 mmol/L (3.6-5.0)
[2019-08-03 05:43] LABS: HEMATOCRIT 34.6 % (36.0-47.0); MEAN CORPUSCULAR HEMOGLOBIN 26.9 pg (27.0-33.4); MEAN CORPUSCULAR HGB CONC 34.5 g/dL (32.0-36.0); MEAN CORPUSCULAR VOLUME 78 fl (80-97); PLATELET COUNT 274 10^3/uL (150-450); RED BLOOD COUNT 4.44 10^6/uL (3.72-5.28); RED CELL DISTRIBUTION WIDTH 14.9 % (11.5-14.0); WHITE BLOOD COUNT 9.4 10^3/uL (4.0-10.5)
[2019-08-03] MEDS: INSULIN LISPRO 100 UNIT/ML 3 ML VIAL SUBCUT SCH ×4 (07:50→22:05)
[2019-08-03] MEDS: HYDROCHLOROTHIAZIDE 25 MG TABLET PO SCH (09:58)
[2019-08-03] MEDS: CLOPIDOGREL BISULFATE 75 MG TABLET PO SCH (09:59)
[2019-08-03] MEDS: CARVEDILOL 12.5 MG TABLET PO SCH ×2 (09:59→22:04)
[2019-08-03] MEDS: AMLODIPINE BESYLATE 10 MG TABLET PO SCH (09:59)
[2019-08-03] MEDS: LISINOPRIL 10 MG TABLET PO SCH (09:59)
[2019-08-03] MEDS: FUROSEMIDE 40 MG TABLET PO SCH (09:59)
[2019-08-03] MEDS ORDERED: POTASSIUM CHLORIDE 10 MEQ TABLET.ER PO SCH (10:00)
[2019-08-03] MEDS: INSULIN GLARGINE,HUM.REC.ANLOG 1,000 UNIT/10 ML VIAL SUBCUT SCH ×2 (10:00→22:10)
--- NOTE | 2019-08-03 16:01 | PDOC PROGRESS REPORT ---
Subjective Progress Note for:: 08/03/19 Subjective:: No adverse events overnight. No new complaints. She says she feels like her vision in her left eye has improved a little bit. Her blood pressure control has improved substantially, and how we did was put her back on home medicine that she was supposed to be taking. She insists that she was taking her medications as prescribed but given my counts as referenced in her H&P, it is highly unlikely that she was taking her medicines exactly as directed. We have also been giving her only half the amount of insulin she says she takes at home and her blood sugar control has been excellent. Reason For Visit: HYPERTENSIVE EMERGENCY Physical Exam Vital Signs: Temp Pulse Resp BP Pulse Ox 98.3 F 70 16 147/78 H 100 08/03/19 15:42 08/03/19 15:42 08/03/19 15:42 08/03/19 15:42 08/03/19 15:42 Intake & Output 08/02/19 08/03/19 08/04/19 06:59 06:59 06:59 Output Total 400 Balance -400 Weight 96.2 kg General appearance: PRESENT: no acute distress, cooperative, hard of hearing, morbidly obese Respiratory exam: PRESENT: clear to auscultation jessica, symmetrical, unlabored. ABSENT: accessory muscle use, chest wall tenderness, crackles, prolonged expiratory phas, retraction, rhonchi, tachypnea, wheezes Cardiovascular exam: PRESENT: RRR, +S1, +S2 Pulses: PRESENT: normal carotid pulses Vascular exam: PRESENT: normal capillary refill GI/Abdominal exam: PRESENT: normal bowel sounds, soft. ABSENT: distended, guarding, rebound, tenderness Extremities exam: ABSENT: clubbing, pedal edema Musculoskeletal exam: PRESENT: normal inspection. ABSENT: deformity Neurological exam: PRESENT: alert, awake, oriented to person, oriented to place, oriented to time, oriented to situation, normal gait. ABSENT: CN II-XII grossly intact - She has left visual deficit as noted above Psychiatric exam: PRESENT: appropriate affect, normal mood Skin exam: PRESENT: dry, warm Results Laboratory Results: 08/03/19 04:58 08/03/19 04:58 08/03/19 08/03/19 04:58 04:58 WBC 9.4 RBC 4.44 Hgb 12.0 Hct 34.6 L MCV 78 L MCH 26.9 L MCHC 34.5 RDW 14.9 H Plt Count 274 Sodium 133.3 L Potassium 3.8 Chloride 101 Carbon Dioxide 24 Anion Gap 8 BUN 17 Creatinine 0.80 Est GFR ( Amer) > 60 Glucose 135 H Calcium 9.1 Impressions: Head CT 08/02/19 12:49 IMPRESSION: MILD CHRONIC MICROVASCULAR ISCHEMIA. NO ACUTE IMAGING FINDINGS IN THE BRAIN. EVIDENCE OF ACUTE STROKE: NO. Assessment and Plan - Diagnosis (1) Hypertensive emergency without congestive heart failure Is this a current diagnosis for this admission?: Yes Plan: Resolved. She just needs to take her medications as prescribed and that should prevent this from happening again in the future. (2) Diabetes Qualifiers: Diabetes mellitus type: type 2 Diabetes mellitus jail insulin use: with jail use Diabetes mellitus complication status: with ophthalmic complications Diabetes mellitus complication detail: with cataract Qualified Code(s): E11.36 - Type 2 diabetes mellitus with diabetic cataract; Z79.4 - [facility] (current) use of insulin Is this a current diagnosis for this admission?: Yes Plan: Well-controlled on half the amount of her usual home prescribed insulin. Suspect a large degree of dietary indiscretion. (3) Monocular visual disturbance Is this a current diagnosis for this admission?: Yes Plan: Wanted to get an MRI today to better assess for ischemia, but apparently the MRI department did not have to come into work today so we will try to get it tomorrow. - Time Time Spent with patient: 15-24 minutes
[2019-08-03] MEDS: TRAMADOL HCL 50 MG TABLET PO PRN (19:26)
[2019-08-03] MEDS: ATORVASTATIN CALCIUM 40 MG TABLET PO SCH (22:01)
[2019-08-03] MEDS: TRAZODONE HCL 50 MG TABLET PO SCH (22:02)
--- NOTE | 2019-08-04 01:08 | RADIOLOGY REPORT (SQ) ---
CLINICAL HISTORY: left monocular visual disturbance COMPARISON: 08/02/2019. TECHNIQUE: MR BRAIN WITHOUT IV CONTRAST 08/03/2019 12:00 AM RADIOLOGY TECHNOLOGIST FINDINGS: There are no areas of restricted diffusion. Ventricles and sulci are unremarkable. There is no acute hemorrhage, midline shift or mass effect. There are patchy areas of T2 propagation within the periventricular and subcortical white matter secondary to small vessel ischemic changes. Expected intracranial flow voids are present. There is no hydrocephalus. Bilateral lens replacements were performed. Paranasal sinuses and mastoid air cells are clear. IMPRESSION: Essentially unremarkable study for age.
[2019-08-04] MEDS: TRAMADOL HCL 50 MG TABLET PO PRN (02:43)
[2019-08-04] MEDS: CLONIDINE HCL 0.1 MG TABLET PO SCH (06:39)
[2019-08-04] MEDS: PANTOPRAZOLE SODIUM 40 MG TABLET.DR PO SCH (06:39)
[2019-08-04] MEDS: INSULIN LISPRO 100 UNIT/ML 3 ML VIAL SUBCUT SCH ×2 (08:11→12:14)
[2019-08-04] MEDS: AMLODIPINE BESYLATE 10 MG TABLET PO SCH (09:14)
[2019-08-04] MEDS: LISINOPRIL 10 MG TABLET PO SCH (09:14)
[2019-08-04] MEDS: CLOPIDOGREL BISULFATE 75 MG TABLET PO SCH (09:15)
[2019-08-04] MEDS: INSULIN GLARGINE,HUM.REC.ANLOG 1,000 UNIT/10 ML VIAL SUBCUT SCH (09:15)
[2019-08-04] MEDS: HYDROCHLOROTHIAZIDE 25 MG TABLET PO SCH (09:15)
[2019-08-04] MEDS: FUROSEMIDE 40 MG TABLET PO SCH (09:15)
[2019-08-04] MEDS: CARVEDILOL 12.5 MG TABLET PO SCH (09:15)
[2019-08-04 12:18] VITALS: BP 147/56
--- NOTE | 2019-08-04 13:21 | PDOC DISCHARGE SUMMARY ---
Impression - Admit/DC Date/PCP Admission Date/Primary Care Provider: 08/02/19 14:01 SUNITA LEWIS Discharge Date: 08/04/19 - Discharge Diagnosis (1) Hypertensive emergency without congestive heart failure Is this a current diagnosis for this admission?: Yes (2) Diabetes Is this a current diagnosis for this admission?: Yes (3) Monocular visual disturbance Is this a current diagnosis for this admission?: Yes - Additional Information Resuscitation Status: Full Code Discharge Diet: Cardiac, Diabetic Discharge Activity: Activity As Tolerated, Slowly Increase Activity Referrals: FRANCISCO STILES FNP [Primary Care Provider] - (1 week) Home Medications: Alprazolam [Xanax 0.25 mg Tablet] 0.25 mg PO DAILYP PRN 08/02/19 Amlodipine Besylate [Norvasc 10 mg Tablet] 10 mg PO DAILY 08/02/19 Aspirin [Ecotrin 81 mg EC Tablet] 81 mg PO DAILY 08/02/19 Atorvastatin Calcium [Lipitor 40 mg Tablet] 40 mg PO QHS 08/02/19 Clopidogrel Bisulfate [Plavix 75 mg Tablet] 75 mg PO DAILY 08/02/19 Furosemide [Lasix 40 mg Tablet] 40 mg PO DAILY 08/02/19 Lansoprazole [Prevacid 30 mg Odt Tablet] 30 mg PO BID 08/02/19 Potassium Chloride [Klor-Con 10 Meq Tablet ER] 10 meq PO WEFR@1000 08/02/19 Tramadol HCl [Ultram 50 mg Tablet] 50 mg PO Q6HP PRN 08/02/19 Trazodone HCl [Desyrel 50 mg Tablet] 50 mg PO QHS 08/02/19 Amlodipine Besylate [Norvasc 10 mg Tablet] 10 mg PO DAILY tablet 08/04/19 Carvedilol [Coreg 12.5 mg Tablet] 12.5 mg PO Q12 tablet 08/04/19 Clonidine HCl [Catapres 0.1 mg Tablet] 0.1 mg PO Q8 tablet 08/04/19 Hydrochlorothiazide [Hydrodiuril 25 mg Tablet] 25 mg PO DAILY tablet 08/04/19 Insulin Aspart [Novolog] 8 units SQ MEALS #0 08/04/19 Insulin Glargine,Hum.rec.anlog [Lantus Insulin 100 Unit/1 ml 10 ml] 30 unit SUBCUT Q12 unit 08/04/19 Lisinopril [Prinivil 10 mg Tablet] 20 mg PO DAILY tablet 08/04/19 History of Present Illiness History of Present Illness: SHARON MCPHERSON is a 69 year old female with a history of hypertension who had problems with vision in her left eye and got an appointment with an gatekeeper who told her that her blood pressure looked like it was high. They checked her blood pressure in the office and apparently it was a systolic of around 220. They called her primary care provider who instructed them to send her to the ER. In the ER her systolic was in the 190s and it responded temporarily to hydralazine. The patient is not a very good historian and does not even know the names of the medications that she takes. Fortunately, she had a bag with all of her medication bottles in it. From what I could tell, for blood pressure she takes Coreg, lisinopril, HCTZ, amlodipine, clonidine, and it looks like she also takes Lasix. I did not examine all of the bottles in great detail, but she had multiple bottles of her lisinopril and HCTZ, some from 5 or 6 months ago that were still half full from a 90-day prescription along with a recently filled bottle which looked fairly full. The same thing is true of her clonidine. She had a bottle of amlodipine, a 90-day supply, that was filled in the end of January and therefore should have by the end of April. How ever, it looks more than half full. Today, it seems that the patient had taken 1 dose of clonidine this morning and none of the others. She said she does not always take her Lasix because it makes her urinate. She had a head CT that was negative. She has no other metabolic derangements at this time. Hospital Course Hospital Course: I do not believe that this patient was actually taking her blood pressure medications as prescribed, because all we did was put her back on the medications that are prescribed for her and her blood pressure was substantially improved. Her systolic was consistently in the 130s to 140s, compared to a systolic of greater than 220 that was allegedly detected at the gatekeeper office. Indeed, her systolic was near 200 in the ER. She says she had some improvement in her visual symptoms as her blood pressure improved. We did an MRI of the brain to look for evidence of stroke but the MRI was negative. We provided her with a list of the medications she is supposed to take and have encouraged her to be compliant. I have requested home health for half-way to periodically assess whether or not she is taking her medications as directed. She would benefit from some sort of organizational system so that she is not consistently missing doses of her medications as she has been. Also, we recommended that she be compliant with her diabetic diet, because we were giving her half of the insulin she said she was taking at home and her blood sugars here were well controlled. Her labs and examination were reassuring and she was discharged in stable condition. Physical Exam Vital Signs: Temp Pulse Resp BP Pulse Ox 98.2 F 68 16 147/56 H 98 08/04/19 12:16 08/04/19 12:16 08/04/19 12:16 08/04/19 12:16 08/04/19 12:16 Intake & Output 08/03/19 08/04/19 08/05/19 06:59 06:59 06:59 Intake Total 580 Output Total 400 Balance -400 580 Weight 96.2 kg General appearance: PRESENT: no acute distress, cooperative, hard of hearing, morbidly obese Respiratory exam: PRESENT: clear to auscultation jessica, symmetrical, unlabored. ABSENT: accessory muscle use, chest wall tenderness, crackles, prolonged expiratory phas, retraction, rhonchi, tachypnea, wheezes Cardiovascular exam: PRESENT: RRR, +S1, +S2 Pulses: PRESENT: normal carotid pulses Vascular exam: PRESENT: normal capillary refill GI/Abdominal exam: PRESENT: normal bowel sounds, soft. ABSENT: distended, guarding, rebound, tenderness Extremities exam: ABSENT: clubbing, pedal edema Musculoskeletal exam: PRESENT: normal inspection. ABSENT: deformity Neurological exam: PRESENT: alert, awake, oriented to person, oriented to place, oriented to time, oriented to situation, normal gait. ABSENT: CN II-XII grossly intact - She has left visual deficit as noted above Psychiatric exam: PRESENT: appropriate affect, normal mood Skin exam: PRESENT: dry, warm Results Laboratory Results: WBC 9.4 10^3/uL (4.0-10.5) 08/03/19 04:58 RBC 4.44 10^6/uL (3.72-5.28) 08/03/19 04:58 Hgb 12.0 g/dL (12.0-15.5) 08/03/19 04:58 Hct 34.6 % (36.0-47.0) L 08/03/19 04:58 MCV 78 fl (80-97) L 08/03/19 04:58 MCH 26.9 pg (27.0-33.4) L 08/03/19 04:58 MCHC 34.5 g/dL (32.0-36.0) 08/03/19 04:58 RDW 14.9 % (11.5-14.0) H 08/03/19 04:58 Plt Count 274 10^3/uL (150-450) 08/03/19 04:58 Lymph % (Auto) 20.7 % (13-45) 08/02/19 12:57 [place] % (Auto) 9.0 % (3-13) 08/02/19 12:57 Eos % (Auto) 3.7 % (0-6) 08/02/19 12:57 Baso % (Auto) 0.5 % (0-2) 08/02/19 12:57 Absolute Neuts (auto) 5.0 10^3/uL (1.7-8.2) 08/02/19 12:57 Absolute Lymphs (auto) 1.6 10^3/uL (0.5-4.7) 08/02/19 12:57 Absolute Monos (auto) 0.7 10^3/uL (0.1-1.4) 08/02/19 12:57 Absolute Eos (auto) 0.3 10^3/uL (0.0-0.6) 08/02/19 12:57 Absolute Basos (auto) 0.0 10^3/uL (0.0-0.2) 08/02/19 12:57 Seg Neutrophils % 66.1 % (42-78) 08/02/19 12:57 Sodium 133.3 mmol/L (137-145) L 08/03/19 04:58 Potassium 3.8 mmol/L (3.6-5.0) 08/03/19 04:58 Chloride 101 mmol/L (98-107) 08/03/19 04:58 Carbon Dioxide 24 mmol/L (22-30) 08/03/19 04:58 Anion Gap 8 (5-19) 08/03/19 04:58 BUN 17 mg/dL (7-20) 08/03/19 04:58 Creatinine 0.80 mg/dL (0.52-1.25) 08/03/19 04:58 Est GFR ( Amer) > 60 (>60) 08/03/19 04:58 Est GFR (MDRD) Non-Af > 60 (>60) 08/03/19 04:58 Glucose 135 mg/dL (75-110) H 08/03/19 04:58 POC Glucose 132 mg/dL (70-110) H 08/04/19 07:59 Calcium 9.1 mg/dL (8.4-10.2) 08/03/19 04:58 Impressions: Head CT 08/02/19 12:49 IMPRESSION: MILD CHRONIC MICROVASCULAR ISCHEMIA. NO ACUTE IMAGING FINDINGS IN THE BRAIN. EVIDENCE OF ACUTE STROKE: NO. Head MRI 08/03/19 00:00 IMPRESSION: Essentially unremarkable study for age. Plan Time Spent: Greater than 30 Minutes Stroke Is this a Stroke Patient?: No Acute Heart Failure - Is this a Heart Failure Patient?: No
== END 2019-08-04 12:39 | disposition home or self-care (01) | DRG 305 ==
LOC: ER 11:59 → EH 14:01 → 3W 21:26
PROVIDERS: ADMIT Family Medicine; ATTEND Family Medicine
DX: I16.1 Hypertensive emergency (principal); H53.122 Transient visual loss, left eye; E11.36 Type 2 diabetes mellitus with diabetic cataract; Z79.4 Long term (current) use of insulin; Z79.82 Long term (current) use of aspirin; Z79.899 Other long term (current) drug therapy; T46.5X6A Underdosing of other antihypertensive drugs, initial encounter; Z91.138 Patient's unintentional underdosing of medication regimen for other reason; Z79.02 Long term (current) use of antithrombotics/antiplatelets; Z23 Encounter for immunization
CPT/HCPCS: 36415; 70450; 70551; 80048; 82962; 85025; 85027; 90686; 96374; 99285; J0360; J1815; J3490